=== PATIENT | female | born 1980 | race Caucasian/White ===

== ENCOUNTER → 2024-05-25 10:24 | Outpatient (BNVA) | payer OTHER, SELFPAY | PROVIDERS: Visit Provider Student in an Organized Health Care Education/Training Program | DX: S92.30 Fracture of unspecified metatarsal bone(s); X58.XXXD Exposure to other specified factors, subsequent encounter; M25.371 Other instability, right ankle | CPT/HCPCS: 73630 ==

== ENCOUNTER 2024-05-26 09:51 | Outpatient (CLI) | payer OTHER, SELFPAY ==
--- NOTE | 2024-05-26 10:15 | MRR_ITS ---
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 Exam focused on the ankle. COMPARISON: CR XR foot RT min 3V* [id number] 05/25/2024 10:45 AM FINDINGS: Bones/joints: A transversely oriented minimally displaced fracture of the proximal shaft of the 5th metatarsal is similar. Adjacent moderate patchy bone marrow edema throughout the 5th metatarsal shaft is identified. Small osteophytes are identified at the midfoot and 2nd tarsometatarsal articulation. Mild degenerative subcortical cystic changes in the base of the 2nd metatarsal and the distal aspect of the medial cuneiform are noted. A small to moderate os trigonum is noted. Moderate plantar calcaneal enthesophyte formation is identified. LIGAMENTS: Distal tibiofibular syndesmosis: Unremarkable. No tear. Anterior talofibular ligament: Unremarkable. No tear. Posterior talofibular ligament: Unremarkable. No tear. Calcaneofibular ligament: Unremarkable. No tear. Deltoid ligament complex: Unremarkable. No tear. TENDONS: Flexor tendons of foot: Unremarkable as visualized. Tibialis posterior tendon: Unremarkable as visualized. Peroneal tendons: Mild abnormal fluid in the peroneus longus and brevis tendon sheaths is noted. Extensor tendons of foot: Unremarkable as visualized. Tibialis anterior tendon: Unremarkable as visualized. Achilles tendon: Unremarkable as visualized. Tarsal canal (Sinus tarsi): Unremarkable. Normal signal of the fat. Tarsal tunnel: Unremarkable. Soft tissues: Mild medial and lateral subcutaneous edema is noted. No discrete soft tissue fluid collection. Mild interosseous muscle edema is noted surrounding the 5th metatarsal shaft. Plantar fascia: Plantar fascia is unremarkable. MR/MR ankle RT wo con* [id number] IMPRESSION: 1. Similar minimally displaced fracture of the proximal shaft of the 5th metatarsal with adjacent bone marrow edema suggestive of contusion. No significant healing at the fracture site is identified. 2. Interosseous muscle edema surrounds the 5th metatarsal shaft, likely reactive. 3. Mild midfoot and 2nd tarsometatarsal joint primary osteoarthritic changes. 4. Mild peroneus longus and brevis tenosynovitis.
== END 2024-05-26 09:52 | disposition home or self-care (01) ==
LOC: RAD 09:52
PROVIDERS: Visit Provider Student in an Organized Health Care Education/Training Program
DX: S92.351A Displaced fracture of fifth metatarsal bone, right foot, initial encounter for closed fracture (principal); M25.371 Other instability, right ankle; X58.XXXA Exposure to other specified factors, initial encounter
CPT/HCPCS: 73721

== ENCOUNTER → 2024-07-05 13:29 | Outpatient (BNVA) | payer OTHER, SELFPAY | PROVIDERS: Visit Provider Nurse Practitioner Family | DX: S89.82XA Other specified injuries of left lower leg, initial encounter (principal); M25.762 Osteophyte, left knee; X58.XXXA Exposure to other specified factors, initial encounter; Y99.0 Civilian activity done for income or pay; M17.12 Unilateral primary osteoarthritis, left knee | CPT/HCPCS: 73562 ==

== ENCOUNTER 2024-07-08 11:45 | Outpatient (CLI) | payer OTHER, SELFPAY ==
--- NOTE | 2024-07-08 11:45 | MR_ITS ---
WS: [id number] MRI LEFT KNEE NONCONTRAST TECHNIQUE: Axial PD, coronal PD fat sat, coronal PD, sagittal PD, and sagittal PD fat-sat images obta ined. CLINICAL INFORMATION: Left knee pain and instability COMPARISON: None. FINDINGS: Moderate tricompartment arthritis advanced for patient this age. Mild hypertrophic changes along the joint line. Grade IV chondromalacia patella with a small amount of subchondral edema and full-thickne ss cartilage defects also advanced for patient this age. Small suprapatellar effusion. Mild mucoid de generation of the ACL. ACL and PCL appear intact. Chronic thinning of the medial and lateral meniscus which appear intact. Prepatellar and infrapatellar soft tissue edema. Medial and lateral collateral ligaments appear intact. Popliteus appears intact. Normal fibular head. Trace popliteal fluid/cyst. MR/MR knee LT wo con* [id number] IMPRESSION: 1. Normal ACL and PCL. 2. Moderate tricompartmental arthritis most advanced for patient this age with slight hypertrophic changes along the joint line. 3. Medial and lateral collateral ligaments appear intact. 4. Chronic thinning of the medial and lateral meniscus with mild peripheral ex trusion of the medial meniscus. No acute appearing meniscal tears. 5. Grade IV chondromalacia patella with full-thickness cartilage defects and a small amount of subchondral edema. This is advanced for patient this age. 6. Small suprapatellar effusion. Outbridge grading: grade IV: full-thickness cartilage loss with underlying bone reactive changes
== END 2024-07-08 11:46 | disposition home or self-care (01) ==
PROVIDERS: Visit Provider Nurse Practitioner Family
DX: M17.12 Unilateral primary osteoarthritis, left knee (principal); M22.42 Chondromalacia patellae, left knee; M25.462 Effusion, left knee; S89.92XA Unspecified injury of left lower leg, initial encounter; X58.XXXA Exposure to other specified factors, initial encounter
CPT/HCPCS: 73721

== ENCOUNTER 2025-01-04 19:34 | Emergency (ER) | payer OTHER, SELFPAY ==
--- OUTSIDE RECORDS SUMMARY | 2025-01-04 19:38 | XMS_ITS | Patient Health Record ---
Author Organization [facility] Address [address] [facility] [address] [place] [address] Care Team Providers Care Continuous Improvement Engineer Name Role Phone Jenny Mcclellan Primary Care Provider Annalisaa Lucero Dempsey Unavailable [phone] Reason For Referral No Information Problems Problem Type SNOMED Code ICD Code Onset Dates Problem Status W/U Status Risk Notes Problem Inflamed seborrheic keratosis (421599061) Inflamed seborrheic keratosis (L82.0) Active confirmed Problem Disorder of skin AND/OR subcutaneous tissue (19348731) Disorder of the skin and subcutaneous tissue, unspecified (L98.9) Active confirmed Problem History of malignant neoplasm of skin (situation) (136593583) Personal history of other malignant neoplasm of skin (Z85.828) Active confirmed Plan Of Treatment No Information Insurance Providers Payer Name Payer Address Payer Phone Subscriber Number Group Number Insured Name Patient Relationship to Insured Coverage Start Date Coverage End Date [employer] [address] [place] [id number] [id number] Juan Magaly Self - patient is the insured
--- OUTSIDE RECORDS SUMMARY | 2025-01-04 19:39 | XMS_ITS | Data Portability ---
Author Organization [facility], [employer] [facility] Address [address] [place] [address] Assessment Encounter Date Assessment Date Assessment LastModified by Organization Details LastModified Time 12/13/2022 12/13/2022 Patient presented for medication refill. Patient tolerating medication well at current dose without adverse effects. Refilled as below. Discussed plan with patient, who expressed understanding . Follow up as noted below. Not available 12/13/2022 09:25:13 04/07/2023 04/07/2023 Patient presented for medication refill. Patient tolerating medication well at current dose without adverse effects. Refilled as below. Discussed plan with , who expressed understanding . Follow up as noted below. Not available 04/08/2023 17:24:38 01/20/2024 01/20/2024 Patient presented for medication refill. Patient tolerating medication well at current dose without adverse effects. Refilled as below. Discussed plan with patient, who expressed understanding . Follow up as noted below. [email or web address] Not available 01/20/2024 10:02:12 Plan of Treatment Reminders Order Date Submit Date Provider Last Modified By Organization Details Last Modified Time Details Appointments None recorded. Lab vitamin D, 25-hydroxy, total, serum 2023 TAMMIE Not available 15:14:07 CBC w/ auto diff 2023 TAMMIE Not available 15:24:43 CMP, serum or plasma 2023 TAMMIE Not available 15:17:42 lipid panel, serum 2023 024 TAMMIE Not available 4 15:17:05 vitamin B12 + folate, serum or blood 2023 024 TAMMIE Not available 4 15:16:[address] referral 2022 023 Sergio Sanchez MD, [address] [facility], [address], [place], [address], 3 11:08:08 Procedures None recorded. Surgeries None recorded. Imaging None recorded. Medication Orders metoprolol tartrate 50 mg tablet 2023 024 [facility], [address] [facility], [address], [place], [address], 4 15:43:13 prednisone 10 mg tablet 2023 024 [facility], [address] [place] [address] [place], [id number], 4 10:46:22 atorvastati n 20 mg tablet 2023 024 TAMMIE Not available 4 10:18:45 hydroxyzine HCl 25 mg tablet 2023 024 [facility], [address] [facility], [address], [place], [address], 4 11:39:45 Wellbutrin XL 150 mg 24 hr tablet, extended release 2023 024 [facility], [address] [facility] [address], [address], [place], [address], 4 11:39:48 Zanaflex 4 mg tablet 2023 024 [facility], [address] [facility] [address], [address], [place], [address], 4 16:16:06 spironolact one 25 mg tablet 2023 024 [facility] [place], [address] [place] [address], [address], [place], [address], 4 15:43:14 metoprolol tartrate 50 mg tablet 2022 023 TAMMIE Not available 3 16:31:15 tizanidine 4 mg tablet 2022 023 Not available 4 09:59:59 hydroxyzine HCl 25 mg tablet 2022 023 [email or web address] Not available 4 10:01:09 atorvastati n 20 mg tablet 2022 023 TAMMIE Not available 4 14:54:54 Wellbutrin XL 150 mg 24 hr tablet, extended release 2022 023 [email or web address] Not available 4 10:00:09 alprazolam 0.5 mg tablet 2022 023 [email or web address] Not available 4 09:59:12 cyanocobala min (vit B-12) 1,000 mcg/mL injection solution 2022 023 TAMMIE Not available 3 17:12:49 ergocalcife rol (vitamin D2) 1,250 mcg (50,000 unit) capsule 2022 023 TAMMIE Not available 4 14:54:53 spironolact one 25 mg tablet 2022 023 TAMMIE Not available 4 14:54:56 clonidine HCl 0.1 mg tablet 2022 023 [email or web address] Not available 4 10:09:15 losartan 50 mg-hydrochl orothiazide 12.5 mg tablet 2022 023 [email or web address] Not available 4 10:09:31 spironolact one 25 mg tablet 2022 023 TAMMIE Not available 3 11:39:39 clonidine HCl 0.1 mg tablet 2022 023 [email or web address] Not available 4 10:09:15 phentermine 37.5 mg tablet 2022 023 [email or web address] Not available 4 10:09:35 tranexamic acid 650 mg tablet 2022 023 TAMMIE Not available 3 17:12:39 phentermine 37.5 mg tablet 2022 023 [email or web address] Not available 4 10:09:35 metoprolol tartrate 50 mg tablet 2022 023 TAMMIE Not available 3 15:44:31 Patient Targets Encounter Date Encounter Id Patient Goals Patient Target Last Modified By Organization Details Last Modified Time 11/15/2022 [id number] maintain healthy dietmaintain healthy weightmaintain blood pressure less than or equal to 150/90 [email or web address] Not available 11/15/2022 10:01:03 12/13/2022 [id number] decrease body weight 1-3 pounds per month Not available 12/13/2022 10:05:54 04/07/2023 [id number] blood pressure 120/80mmHgget spots on her face removed Not available 04/08/2023 17:29:26 Patient Instructions Encounter Date Encounter Id Patient Instructions Last Modified By Organization Details Last Modified Time 12/13/2022 [id number] take medication as prescribed increase fluids encourage diet and exercise keep appointment with Gynecology Not available 12/13/2022 10:08:57 04/07/2023 [id number] learning about relief for back pain Not available 04/07/2023 17:11:47 take medication as prescribed increase fluids will refer to dermatology Not available 04/08/2023 17:29:50 01/20/2024 [id number] labs pending Discussed keeping daily blood pressure log Increase water intake Watch sodium and caffeine intake Use heat and cold therapy for 15 minutes at a time Rest affected area as much as possible Alternate tylenol and ibuprofen q4h PRN for pain as appropriate Educated on gentle stretching [email or web address] Not available 01/20/2024 10:19:07 Reason for Referral [place] Referral for M elanocytic nevus of skin Referring Physician: Jenny Mcclellan, Family Medicine, Encounter Date: 04/07/2023 Results Created Date Observation Date Name Description Value Unit Range Abnormal Flag Note LastModifiedBy Organization Detail LastModifiedTime Result Notes None recorded. Problems Name Problem SNOMED Code Status Onset Date Resolution Date Notes Provider Name and Address Organization Details Recorded Time Obesity 877056962 Active 2022 Not Available [facility] 3 11:28:46 Essential hypertensi on 31422781 Active 2022 Not Available [facility] 3 11:28:46 Disorder of menstruati on 004040574 Active 2022 Not Available [facility] 3 11:28:46 Menorrhagi a 859916560 Active 2022 Not Available [facility] 3 11:28:46 Anxiety 32764249 Active 2023 Alanna Angelo, DIM[place] [address] [place], [address] , [facility] 4 10:10:04 Disorder of vitamin B12 528551498 Active 2023 Alanna Angelo APRN [address] [place], [address] , [facility] 4 10:12:10 Pain of right hip joint 9079124597159 02 Active 2023 Alanna Angelo APRN [address] [place], [address] , [facility] 4 10:14:20 Vitamin D deficiency 37158644 Active 2023 Alanna Angelo APRN [address] [place], [address] , [facility] 4 10:15:01 Hypertensi ve disorder 29312850 Active 2019 Not Available [facility] 3 11:28:46 Depressive disorder 30363977 Active 2019 Not Available [facility] 3 11:28:46 Hyperlipid emia 78178274 Active 2019 Not Available [facility] 3 11:28:46 Problem Notes None recorded. Procedures Surgical History Date Name Laterality Status Provider Name and Address Organization Details Recorded Time 2 delivery completed Pari Rodriguez [facility] 06/26/2021 14:52:58 repair of tendon completed Ana Rivas [facility] 08/11/2019 16:38:29 Imaging Results None recorded. Procedure Notes None recorded. Medical Equipment None Reported. Allergies Allergen ID Allergen Name Allergen Category Reaction Reaction Severity Criticality Documentation Date Start Date Code Code System Note Provider Name and Address Organization Details Recorded Time 3174 lisinopri l medicatio n Not available Not available Not available 08/11/2019 77005 RxNorm Ana Rivas [facility] 0 16:32:00 3175 doxycycli ne Not available Not available Not available Not available 08/11/2019 3640 RxNorm Ana Rivas [facility] 0 16:32:09 3176 Imitrex medicatio n Not available Not available Not available 08/11/2019 69710 3 RxNorm Ana Rivas [facility] 0 16:32:15 Medications Name Sig Start Date Stop Date Status Note LastModified by Organization Details LastModified Time semaglutide 1mg/ml injection milliliters INJECT 0.5ML (50 SYRINGE UNITS) UNDER THE SKIN ONCE WEEKLY 01/19 completed Not Available Not Available Not Available losartan 50 mg tablet TAKE 1 TABLET BY MOUTH TWICE DAILY 07/20 completed Not Available Not Available Not Available cyclobenzap rine 10 mg tablet 1 tab PO daily as needed 06/29 completed Not Available Not Available Not Available clonidine HCl 0.1 mg tablet Take 1 tablet every day by oral route as needed for 30 days. 01/19 completed Not Available Not Available Not Available prednisone 10 mg tablet TAKE ONE TABLET BY MOUTH EVERY DAY FOR 10 DAYS active Not Available Not Available No t Available atorvastati n 20 mg tablet TAKE 1 TABLET EVERY DAY BY ORAL ROUTE FOR 30 DAYS. active Not Available Not Available No t Available azithromyci n 250 mg tablet TAKE 2 TABLETS BY MOUTH ON DAY 1, THEN TAKE 1 TABLET DAILY ON DAYS 2-5 01/19 completed Not Available Not Available Not Available benzonatate 200 mg capsule Take 1 capsule 3 times a day by oral route. 06/29 completed Not Available Not Available Not Available valacyclovi r 1 gram tablet Take 2 tablets every 12 hours by oral route for 1 day. 06/29 completed Not Available Not Available Not Available prednisone 20 mg tablet Take 2 tablets every day by oral route. 06/29 completed Not Available Not Available Not Available promethazin e 6.25 mg-codeine 10 mg/5 mL syrup Take 5 mL every 6 hours by oral route. 06/29 completed Not Available Not Available Not Available phentermine 37.5 mg tablet Take 1 tablet every day by oral route for 30 days. 01/19 completed Not Available Not Available Not Available fluocinonid e 0.05 % topical ointment APPLY TO THE AFFECTED AREA(S) BY TOPICAL ROUTE 2 TIMES PER DAY 04/07 completed Not Available Not Available Not Available acetaminoph en 300 mg-codeine 30 mg tablet Take 1 tablet every 6 hours by oral route for 7 days. 06/29 completed Not Available Not Available Not Available triamterene 37.5 mg-hydrochl orothiazide 25 mg capsule 06/29 completed Not Available Not Available Not Available spironolact one 25 mg tablet 1-2 tablets daily 2023 active Not Available Not Available Not Avai lable acyclovir 800 mg tablet Take 1 tablet 3 times a day by oral route as needed for 10 days. 03/01 completed Not Available Not Available Not Available carvedilol 3.125 mg tablet TAKE 1 TABLET BY MOUTH TWICE DAILY 06/29 completed Not Available Not Available Not Available Celebrex 200 mg capsule Take 1 capsule every day by oral route. 09/06 completed Not Available Not Available Not Available losartan 100 mg-hydrochl orothiazide 25 mg tablet 04/07 completed Not Available Not Available Not Available alprazolam 0.5 mg tablet 1 tab PO bid 01/19 completed Not Available Not Available Not Available Zanaflex 4 mg tablet Take 1 tablet 3 times a day by oral route as needed for 30 days. 2023 active Not Available Not Available Not Avai lable potassium 99 mg tablet Take by oral route. 06/29 completed Not Available Not Available Not Available amoxicillin 875 mg tablet TAKE ONE TABLET BY MOUTH TWICE DAILY 01/19 completed Not Available Not Available Not Available cephalexin 500 mg capsule TAKE 2 CAPSULES BY MOUTH TWICE DAILY 01/19 completed Not Available Not Available Not Available cyanocobala min (vit B-12) 1,000 mcg/mL injection solution Inject 1 mL every month by subcutane ous route. 2023 active Not Available Not Available Not Avai lable Norvasc 5 mg tablet Take 1 tablet every day by oral route. 08/26 completed Not Available Not Available Not Available triamcinolo ne acetonide 0.1 % topical ointment APPLY OINTMENT TOPICALLY TO AFFECTED AREA THREE TIMES DAILY 03/01 completed Not Available Not Available Not Available metoprolol tartrate 50 mg tablet TAKE ONE TABLET BY MOUTH TWICE DAILY active Not Available Not Available No t Available hydrochloro thiazide 12.5 mg capsule TAKE 1 CAPSULE (12.5 MG TOTAL) BY MOUTH DAILY. 06/29 completed Not Available Not Available Not Available hydroxyzine HCl 25 mg tablet Take 1 tablet 3 times a day by oral route for 30 days. 2023 active Not Available Not Available Not Avai lable mupirocin 2 % topical ointment APPLY OINTMENT EXTERNALL Y TO AFFECTED AREA THREE TIMES DAILY 03/01 completed Not Available Not Available Not Available ergocalcife rol (vitamin D2) 1,250 mcg (50,000 unit) capsule TAKE 1 CAPSULE (50,000 UNITS TOTAL) BY MOUTH ONCE A WEEK. 2022 active Not Available Not Available Not Avai lable dexamethaso ne sodium phosphate 4 mg/mL injection solution Inject 2 mL twice a day by intramusc ular route. 06/29 completed Not Available Not Available Not Available Transderm-S copra sampler 1 mg over 3 days transdermal patch 06/29 completed Not Available Not Available Not Available methylpredn isolone 4 mg tablets in a dose pack follow attached instructi ons 01/19 completed Not Available Not Available Not Available albuterol sulfate HFA 90 mcg/actuati on aerosol inhaler INHALE 1 PUFF EVERY 4 HOURS NEEDED 01/19 completed Not Available Not Available Not Available losartan 50 mg-hydrochl orothiazide 12.5 mg tablet Take 1 tablet every day by oral route. 01/19 completed Not Available Not Available Not Available amoxicillin 875 mg-baldev m clavulanate 125 mg tablet 08/11 completed Not Available Not Available Not Available Mucinex 600 mg tablet, extended release Take 1 tablet every 12 hours by oral route. 06/29 completed Not Available Not Available Not Available bupropion HCl XL 300 mg 24 hr tablet, extended release TAKE 1 TABLET (300 MG TOTAL) BY MOUTH EVERY MORNING. 03/01 completed Not Available Not Available Not Available Wellbutrin XL 150 mg 24 hr tablet, extended release Take 1 tablet every day by oral route for 30 days. 2023 active Not Available Not Available Not Avai lable metoprolol tartrate 25 mg tablet Take 1 tablet twice a day by oral route for 30 days. 04/07 completed Not Available Not Available Not Available duloxetine 20 mg capsule,del ayed release Take 1 capsule twice a day by oral route. 08/26 completed Not Available Not Available Not Available Zanaflex 4 mg PRN 03/01 completed Not Available Not Available Not Available alendronate -vitamin D3 1 tab PO 06/29 completed Not Available Not Available Not Available Symbicort 160 mcg-4.5 mcg/actuati on HFA aerosol inhaler Inhale 2 puffs twice a day by inhalatio n route. 07/20 completed Not Available Not Available Not Available azelastine 205.5 mcg (0.15 %) nasal spray [place] 1 spray twice a day by intranasa l route. 06/29 completed Not Available Not Available Not Available tranexamic acid 650 mg tablet Take 2 tablets 3 times a day by oral route for 4 days. 04/07 completed Not Available Not Available Not Available Vitals Date Recorded Body height Heart rate Body mass index (BMI) Body weight Oxygen saturation Oxygen saturation in Arterial blood by Pulse oximetry Systolic blood pressure Diastolic blood pressure Provider Name and Address Organization Details Last Updated DateTime 3 157.48 cm 76 /min 44.6 kg/m2 825787. 46 g 99 % 99 % 169 mm[Hg] 81 mm[Hg] [facility] 3 09:14:35 Date Recorded Body height Body mass index (BMI) Body weight Heart rate Body temperature Respiratory rate Oxygen saturation Oxygen saturation in Arterial blood by Pulse oximetry Systolic blood pressure Diastolic blood pressure Provider Name and Address Organization Details Last Updated DateTime 3 157.48 cm 43.7 kg/m2 037604. 29 g 67 /min 97.9 [degF] 16 /min 98 % 98 % 152 mm[Hg] 95 mm[Hg] Madhuri Tamez [facility] 3 09:08:19 Date Recorded Body height Heart rate Respiratory rate Body temperature Body mass index (BMI) Body weight Oxygen saturation Oxygen saturation in Arterial blood by Pulse oximetry Systolic blood pressure Diastolic blood pressure Provider Name and Address Organization Details Last Updated DateTime 4 157.48 cm 61 /min 18 /min 98.3 [degF] 43.4 kg/m2 019045. 11 g 99 % 99 % 139 mm[Hg] 82 mm[Hg] Cherelle Castro [facility] 4 09:41:48 Date Recorded Body height Heart rate Respiratory rate Body temperature Body mass index (BMI) Body weight Systolic blood pressure Diastolic blood pressure Provider Name and Address Organization Details Last Updated DateTime 3 157.48 cm 63 /min 18 /min 98.4 [degF] 43.8 kg/m2 619609. 37 g 175 mm[Hg] 102 mm[Hg] [facility] 3 09:10:34 Date Recorded Body height Body mass index (BMI) Body weight Heart rate Oxygen saturation Oxygen saturation in Arterial blood by Pulse oximetry Systolic blood pressure Diastolic blood pressure Provider Name and Address Organization Details Last Updated DateTime 3 157.48 cm 44.6 kg/m2 151381. 9 g 66 /min 99 % 99 % 161 mm[Hg] 89 mm[Hg] Christelle Yeh [facility] 3 17:00:40 Social History Question Answer Notes LastModified by [employer] Details LastModified Time Tobacco Smoking Status [facility] 16:37:38 What Is Your Relationship Status? [email or web address] Information not available 06/26/2021 Sex: Unknown Functional Status Question Answer Note LastModified by [employer] Details LastModified Time Do you or have you ever used any other forms of tobacco or nicotine? No [email or web address] Information not available 06/26/2021 What is your level of alcohol consumption? None [email or web address] Information not available 06/26/2021 Do you or have you ever used smokeless tobacco? Never used smokeless tobacco [email or web address] Information not available 08/11/2019 Do you or have you ever used e-cigarettes or vape? Never used electronic cigarettes [email or web address] Information not available 08/11/2019 Mental Status None recorded. Family History Nothing Reported. Medical History No medical history recorded. Gynecological History Statement/Question Response Date of LMP 05/30/2021 28 Obstetrics History GPAL:G 1 P 1 0 0 1 Type Value Full Term 1 Living 1 Total 1 Past Encounters Encounter ID Performer Location Encounter Start Date Encounter Closed Date Diagnosis/Indication Diagnosis SNOMED-CT Code Diagnosis ICD10 Code Diagnosis Note [id number] Jenny Mcclellan NP [facility] [address] [place] [id number] 08/11/2019 16:25:02 08/11/2019 17:24:07 Pain of right hip joint 1976121397 65559 M25.551 [id number] Merrill Fernandez DO [facility] [address] [place] [address] 09/03/2019 09:07:10 09/14/2019 16:27:20 Upper respiratory infection 47890834 J06.9 [id number] Jenny Mcclellan NP [facility] [address] [place] [id number] 09/13/2019 09:29:32 09/15/2019 09:29:03 Acute sinusitis 80870265 J01.90 Acute bronchitis 4566710 2 J20.9 [id number] Bryant Ahn NP [facility] [address] [place] [address] 01/28/2020 14:36:55 01/28/2020 15:18:12 Acute sinusitis 34185009 J01.90 Pruritic rash 00094294 L 28.2 [id number] Jenny Mcclellan NP [facility] [address] [id number] 07/27/2020 10:16:11 07/27/2020 11:41:41 Pain in right foot 5040602280 40880 M79.671 wear walking boot [id number] Jenny Mcclellan NP [facility] [address] [place] [id number] 06/06/2021 09:27:27 06/06/2021 14:48:54 Acute bronchitis 45244173 J20.9 [id number] Merrillfabrice Fernandez [facility] [address] [place] [id number] 06/29/2021 09:25:09 07/19/2021 09:38:37 Obesity 159003940 E66.9 will start phentermin e, follow up in a week or so to check progress and blood pressure [id number] Jenny Mcclellan NP [facility] [address] [place] [address] 07/04/2021 09:04:02 07/23/2021 17:16:17 [id number] Merrill Jim [facility] [address] [place] [address] 07/20/2021 08:47:46 08/12/2021 17:51:48 Anxiety 03101527 F41.9 Essential hypertension 60741718 I10 change losartan to losartan / HCT Obesity 858975769 E66.9 [id number] Merrill Fernandez [facility] [address] [place] [id number] 08/31/2021 11:10:55 09/20/2021 09:24:05 Herpes simplex 17068589 B00.9 Contact dermatitis 00033 004 L25.9 Vitamin D deficiency 347 08332 E55.9 Obesity 556853413 E66.9 Depressive disorder 3548 9007 F32.A [id number] [facility] [address] [place] [id number] 10/12/2021 16:09:42 10/16/2021 15:00:40 Obesity 596987866 E66.9 [id number] Jenny Bonillaid [facility] [address] [place] [id number] 11/09/2021 16:25:16 12/20/2021 12:38:08 Essential hypertension 80991412 I10 change losartan to losartan / HCT and higher dose Obesity 539029402 E66.9 Vitamin B1 2 deficiency (non anemic) 57331797 E53.8 Hypertensive disorder 38 690397 I10 [id number] Merrill [facility] [address] [place] [id number] 12/07/2021 10:26:50 12/11/2021 11:31:37 Obesity 518485948 E66.9 [id number] Merrill [facility] [address] [place] [id number] 03/01/2022 09:51:25 03/05/2022 17:20:31 Anxiety 35565588 F41.9 Hypertensive disorder 38 644607 I10 [id number] CARL BERG [facility] [address] [place] [place] [id number] 08/26/2022 09:00:02 10/17/2022 17:36:01 Hypertensive disorder 81631684 I10 Anxiety 78792647 F41.9 Hyperlipidemia 21729047 E78.5 [id number] CARL BERG [facility] [address] [place] [place] [id number] 09/11/2022 09:03:43 10/17/2022 18:26:04 Essential hypertension 04588824 I10 Disorder o f menstruation 504843971 N92.6 [id number] CARL BERGalessandra [facility] [address] [place] [address] 10/29/2022 14:14:23 11/06/2022 13:53:36 Menorrhagia 610983780 N92.0 Hypertensive disorder 38 219052 I10 [id number] CARL BERGalessandra [facility] [address] [place] [address] 11/15/2022 09:01:32 11/15/2022 10:17:02 Hypertensive disorder 22751745 I10 Obesity 642203252 E66.9 [id number] Jenny Mcclellan NP [facility] [address] [place] [address] 12/13/2022 09:02:15 12/13/2022 10:10:02 Renewal of prescription 802614462 Z76.0 Menorrhagia 246143525 N9 2.0 Obesity 614477484 E66.9 [id number] CARL BERGalessandra [facility] [address] [place] [address] 02/18/2023 09:05:36 03/24/2023 17:04:53 Essential hypertension 84339148 I10 [id number] LORENA CHRISTINE DO [facility] [address] [place] [address] 04/07/2023 16:52:54 04/09/2023 09:22:02 Essential hypertension 63752312 I10 Hypertensive disorder 38 098676 I10 Vitamin B1 2 deficiency (non anemic) 58765624 E53.8 Hyperlipidemia 69937597 E78.5 Vitamin D deficiency 347 57371 E55.9 Anxiety 71111212 F41.9 Low back pain 306228329 M54.50 Melanocyti c nevus of skin 207508287 D22.9 Renewal of prescription 656048693 Z76.0 [id number] Alanna Angelo APRN [facility] [address] [place] [address] 01/20/2024 09:34:31 01/20/2024 14:57:49 Essential hypertension 66028170 I10 Hyperlipidemia 05861248 E78.5 Hypertensive disorder 38 222784 I10 Anxiety 92657273 F41.9 Adult heal th examination 456252312 Z00.00 Disorder o f vitamin B12 418287238 E53.8 Renewal of prescription 760550645 Z76.0 Pain of ri ght hip joint 3830717752 93841 M25.551 Vitamin D deficiency 347 87754 E55.9 Health Concerns Section Related Observation LastModified by Organization Detai ls LastModified Time None Recorded Concern Status LastModified by Organization Details LastModified Time None Recorded Advance Directives Directive None Recorded Payers Insurance Date Sequence Insurance Name Policy Number Policy Morrow Covered Member ID Morrow Member ID Guarantor Name 01/28/2020 1 [facility]-[employer] - [employer] - [employer] (PPO) [id number] Kevon Martinez [id number] Magaly Martinez 07/27/2020 1 [employer] - 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) Magaly Martinez [id number] Magaly Martinez 01/20/2024 1 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) [id number] Magaly Martinez [id number] Magaly Martinez 02/29/2020 2 [employer] (PPO) Magaly Martinez [id number] Magaly Martinez 07/27/2020 1 [facility]-[employer] - [employer] - [employer] (PPO) [id number] Magaly Martinez [id number] Magaly Martinez Notes Date Note Type Note Provider Name and Address Organization Details Recorded Time 11/15/2022 text/html Hypertension IM/FMReported bypatient.Onset/Ti saumya:better Self Care:non-smoker; on special diet; limiting alcohol intake; exercises regularly;under emotional stress Associated Symptoms:no shortness of breath; no fatigue; no palpitations; no decline in exercise capacity; exertional dyspnea; no snoring; no sleep apnea; no muscle weakness; no numbness; no tingling; no tachycardia; no excessive sweating; no thinning skin; no flank pain; no headaches; no loss of vision; no chest pain alessandra DUNAWAY [address], [place], [phone], [facility] 11/15/2022 10:01:48 12/13/2022 text/html 41 year old suzanna e female presents to the clinic today for medication refills. She states that she has been doing really well on the current medication, route and dose. She denies any other needs at this time. She states that she is also wanting a refill on the TXA because she has one more scheduled menstrual cycle before her surgery and she would like to be prepared for a horrible, heavy cycle since that seems to be the trend. She denies any other needs at this time. Jenny Mcclellan NP [address], [place], [phone], [facility] 12/13/2022 10:09:20 02/18/2023 text/html Hypertension IM/FMReported bypatient.Onset/Ti saumya:better Self Care:non-smoker; on special diet; limiting alcohol intake; exercises regularly;under emotional stress Associated Symptoms:no shortness of breath; no decline in exercise capacity; exertional dyspnea; no snoring; no sleep apnea; no muscle weakness; no numbness; no tingling; no excessive sweating; no thinning skin; no flank pain; no headaches; no loss of vision; no chest pain;fatigue;palpi tations alessandra DUNAWAY [address], [place], [phone], [facility] 03/24/2023 16:17:09 04/07/2023 text/html 42 year old suzanna vergara female presents to the clinic today for medication refills. She states she has been doing well with the current medication. She states that she is changing insurance and is wanting to get her medications before it changes. She also has to areas on the right side of her face that have changed and is scaly. She states that she has had precancer areas removed before and is concerned that these area may be cancerous. She denies any toher needs at this time. Jenny Mcclellan NP [address] [place], [phone], [facility] 04/08/2023 17:30:00 01/20/2024 text/html 43 year old adriana guerrier presents today for wellness. Needs medications refilled. Has been having right hip pain. 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 lAanna Angelo, C SOFTWARE ENGINEER [address], [place], [phone], [facility] 01/20/2024 10:29:45 OBGyn Episode No OBEpisode recorded.
--- OUTSIDE RECORDS SUMMARY | 2025-01-04 19:39 | XMS_ITS ---
Author Organization Unknown Address [address] [place] [id number] Phone Care Team Providers Care Clinical Engineering Director Name Role Phone CIELO STONE Registered Nurse Unavailable MIKEY Thao Attending Unavailable VISHAL STERN ER Unavailab le Results FOOT RT 3+ VIEWS - Completed : 05/15/2024 13:04 LOINC: Social History Type Status Start Date End Date Code Code Syst em Smoking History Never smoker (Never Smoked) 806037899 SNOMED CT Sex Female Vital Signs Vital Sign Value Unit Howe Value Howe Unit Date/Time Recent/Initial? Code Code System Body Mass Index 44.81 kg/m2 05/15/2024 12:28 Initial 30885 -5 [facility] Systolic Blood Pressure 179 mm[Hg] 05/15/2024 12:28 Initial 8480- 6 LOINC Diastolic Blood Pressure 105 mm[Hg] 05/15/2024 12:28 Initial 8462- 4 LOINC Body Surface Area 2.20 m2 05/15/2024 12:28 Initial 3140- 1 LOINC Height 157.480 0 cm 62.00 in 05/15/2024 12:28 Initial 8302- 2 LOINC O2 Saturation 98 % 2023 12:28 Initial 98651 -5 LOINC Pulse 58.0 /min 05/15/2024 12:28 Initial 8867- 4 LOINC Respiration 18 /min 05/15/20 12:28 Initial 9279- 1 LOINC Temperature 37.1 Jacqueline 98.7 F 05/15/20 12:28 Initial 8310- 5 LOINC Weight 111.13 kg 245.00 lbs 05/15/2024 12:28 Initial 81915 -7 LOINC Medications Medication Start Date End Date Route Frequency Dose Code Code System Medication Instructions Home Meds ALPRAZolam 0.5MG Oral Tablet 06/15/2018 Unknown By mouth As needed 1 TABLET 645119 RxNorm 1 TABLET By mouth As needed CeleBREX 200MG Oral Capsule 06/15/2018 Unknown By mouth As needed 1 TABLET 807284 RxNorm 1 TABLET By mouth As needed Cyanocobalamin 1000MCG/1ML Injection Solution 06/15/2018 Unknown Intramuscu lar Two times a month 1 MILLILITER 140677 RxNorm 1 MILLILITER Intramuscu lar Two times a month Lipitor 20MG Oral Tablet 06/15/2018 Unknown By mouth Once a day 1 TABLET 269123 RxNorm 1 TABLET By mouth Once a day Wellbutrin SR 150MG Oral Tablet, Extended Release, 12 HR 06/15/2018 Unknown By mouth Once a day 1 TABLET 369116 RxNorm 1 TABLET By mouth Once a day Zanaflex 4MG Oral Tablet 06/15/2018 Unknown By mouth As needed 1 TABLET 886759 RxNorm 1 TABLET By mouth As needed Azithromycin 250MG Oral Tablet 05/08/2024 Unknown By mouth Once a day 1 TABLET 750294 RxNorm take 2 tablets today and one for the next four days Ventolin HFA 0.09MG/1Actuati on Inhalation Suspension 05/08/2024 Unknown By mouth Every 4-6 hours 530531 RxNorm 1-2 PUFF By mouth Every 4-6 hours as needed for SoB Assessment You had the following problems:ANXIETYHTNHYPERLIPIDEMIACHRONIC LOW BACK PAINSIASTHMABRONCHITISCLOSED FRACTURE OF METATARSAL BONE OF RIGHT FOOT Assessment Impression metatarsal fracture of right foot Hospital Discharge Instructions Should you have any questions prior to discharge, please contact a member of your healthcare team. If you have left the hospital and have any questions, please contact your primary care physician. Reason For Referral No Data Found Problems Problem Start Date Resolved Date Status Code Code System ANXIETY active 71718812 SNOMED-CT HTN active 47816792 SNOMED-CT HYPERLIPIDEMIA active 59300323 SNOME D-CT CHRONIC LOW BACK PAIN active 40813658 9 SNOMED-CT SI active SNOMED-CT ASTHMA active 631832077 SNOMED-CT BRONCHITIS active 35189633 SNOMED-CT CLOSED FRACTURE OF METATARSAL BONE OF RIGHT FOOT 05/15/2024 active 59241286546000584 SNOMED-CT Allergies and Adverse Reactions Allergy Substance Reaction Severity Start Date Concern Status Code Code System DOXYCYCLINE Active 3640 RxNorm LISINOPRIL Active 87710 RxNorm FLU VACCINE HIVES,RASH, ELEVATED HEART RATE (SNOMED-CT: null) Active 527785363 SNOMED-CT IMITREX Active 608621 RxNorm Plan of Treatment Plan Is This a Cardiac or Chest Pain Patient?: No Disposition: Discharged Evaluation Notes The patient is discharged home with a disc containing her radiology films and instructed to follow up with her orthopedic surgeon within 2 - 5 days. The patient has an orthopedic walking boot for her right foot that she plans of wearing until her appointment. Encounters Encounter Diagnosis Start Date Code Code Sys tem Effusion, right foot 05/15/2024 SNOMED- CT Personal Care Team Section Performer Name Performer Role Active Date Inactive Da te Discharge Summary Notes [facility] 05/16/2024 20:25 Final Impression CLOSED FRACTURE OF METATARSAL BONE OF RIGHT FOOT: ICD9CM: SNOMEDCT: 84974897343144620 XRI65ZQ: Y26020A Status: Acute Source: Entered: 05/15/24 Addressed: 05/15/24 Education Foot Fracture in Adults Disposition Diagnosis Diagnosis: Diagnosis:Closed fracture of metatarsal bone of right foot Closed fracture of metatarsal bone of right foot Diagnosis Date: Diagnosis Date:05/15/2024 05/15/2024 Addressed Date: Addressed Date:05/15/2024 05/15/2024 Disposition: Discharged Diagnosis Specific Education: Diagnosis related handout given Activity: May work without restrictions with wearing walking boot Follow-Up: With Orthopedics, In 2 - 5 days, take radiology disc with you to your appointment Patient Signature: Sign and date this document if you have received and understand your discharge instructions and plan of care. Patient: Person Authorized to Consent for Patient: Date: Time: Pain/Fever: You may give Acetaminophen (Tylenol) every 4 hours alternated with Ibuprofen (Motrin, Advil) every 6 hours as needed Procedures / Tests Performed In ER: X-Ray Education Given to Patient: Patient's responsibilities Disposition: Discharged Imaging Narrative Notes [facility] 06/25/2024 03:45 [id number] MIRNA MCGHEE [id number] 05/15/2024 Page 1 [facility] [address] [place], [place] [address] Diagnostic Imaging Report Patient Name: MIRNA MCGHEE : 1980 Sex: F Hospital#: [id number] Exam Date: 05/15/2024 Patient Class: ER Referring Physician: SUSAN JENSEN Reason for Exam: REASON FOR PROCESS: TRAUMA Procedure: FOOT RT 3+ VIEWS EXAM: RADIOGRAPHS, RIGHT FOOT HISTORY: Right foot pain, injury. COMPARISON: None. TECHNIQUE: Three views. FINDINGS: Bone mineralization normal. Moderate hallux valgus present. There is transverse lucency through the proximal shaft of the fifth metatarsal with some non bridging callus formation suggested. No other fractures seen. There is no dislocation. Mild joint space narrowing and spurring noted throughout multiple joints of the foot. Moderate-sized plantar calcaneal spur is present. Some lateral subcutaneous edema noted. IMPRESSION: 1. Nondisplaced fifth metatarsal shaft fracture, which appears subacute. 2. Degenerative changes and hallux valgus. THIS IS AN ELECTRONICALLY VERIFIED REPORT 05/15/2024 01:45:00 PM: Stephen Moody M.D. Stephen Moody M.D. [id number] MIRNA MCGHEE [id number] 05/15/2024 Page 1 of 2 [id number] MIRNA MCGHEE [id number] 05/15/2024 Page 2 TD: 05/15/2024 01:45:00 PM Trans ID: [facility] [id number] MIRNA MCGHEE [id number] 05/15/2024 Page 2 of 2 History and Physical Notes [facility] 05/16/2024 20:25 Chief Complaint and Reason for Visit RT FOOT INJURY Onset: 05/15/24 Triage ED Arrival Date/Time: 12:13:00 ED Arrival Date/Time: 05/15/2024 12:13:00 Triage Date/Time: 05/15/2024 12:15 Triage Location: Bedside - treatment area Mode of Arrival: Private vehicle Accompanied by: Spouse Communication Considerations: None Reported History Reported by: Patient Primary Care Provider: kenny Seen in ED Within Last 72 Hours: No ED History of Present Illness DATE / TIME Seen by Provider: 05/15/2024 12:25 History of Present Illness 43 year old female presents to the ED with complaints of pain and swelling in the dorsal and lateral aspect of the foot. The patient stepped wrong this morning while standing up on her right foot. She instantly felt a pop and has had pain and swelling. She has a history of fractures of the right foot. Disposition: Discharged Disposition: Discharged All History (Non-provider) Data1 Clinical Observation of Pain: Stressed; tensed expression Pain Location: Chest Chest Pain Location: Mid-chest Chest Pain: Aspirin Within 24 Hours of Onset: No Pain Quality: Pressure Exacerbating Factors: Cough/Deep breathing Relieving Factors: None Reported Pain Management Provider: No provider reported Pain Level: 6 Chief Complaint co right foot pain after standing from kneeling position and felt a pop top of foot. happened 1 hour ago. has broke same foot 4 times . took ibuprofen 800poat time of accident Time of Symptom Onset: 1 hour(s) ago Have You Had a Fall or Trauma in the Last 7 to 14 Days?: Yes Is Pain Present: Yes Clinical Observation of Pain: Relaxed; calm expression Pain Location: Lower extremity Pain Location: Lower Extremity: Right - Foot Pain Quality: Aching Exacerbating Factors: Moving affected area, Weight bearing Relieving Factors: None Reported Pain Management Provider: No provider reported Therapies Initiated Prior to Arrival: None Reported Therapies in Use at Time of Arrival: None Reported Oxygen in Use on Arrival: No Tetanus Vaccine: Within 5 years COVID-19 Vaccine: 2 of 2 doses received Pain Level: 4 All History Data ED Provider Note Chief Complaint right foot injury DATE / TIME Seen by Provider: 05/15/2024 12:25 Mode of Arrival: Private vehicle Past Medical History hx of right foot fracture HTN HLD Anxity Asthma Current Medications See medication list Social History See nurse's notes History of Present Illness 43 year old female presents to the ED with complaints of pain and swelling in the dorsal and lateral aspect of the foot. The patient stepped wrong this morning while standing up on her right foot. She instantly felt a pop and has had pain and swelling. She has a history of fractures of the right foot. Allergies LISINOPRIL: DRUG Active IMITREX: BRANDNAME Active DOXYCYCLINE: DRUG Active No Known Food Allergies: FOOD Active FLU VACCINE: HIVES,RASH, ELEVATED HEART RATE CLASS Active Vital Signs Vital Signs/Height/Weight/O2 Therapy Pain Scale 6 Temperature 98.7 F 37.1 C Oral Pulse 58beats/minute Respiration 18 Blood Pressure 179/105 Lying L Arm O2 Saturation 98 % Pain Scale 4 Height 62 inches 157.480 cm Weight 245 lbs 111.13 kg 967729 g Body Mass Index 44.81 Body Surface Area 2.2 Hemodynamic Vital Signs Mean Arterial Pressure 130 mmHg Screenings Actual or Suspected Infection: Pneumonia, Empyema, Cough, Increased work of breathing SIRS: Acute Altered Mental Status: No SIRS: Hyperglycemia: Unknown SIRS: Hyperthermia: No SIRS: Hypothermia: No SIRS: Tachycardia: No SIRS: Tachypnea: No SIRS: Leukocytosis: Unknown SIRS: Leukopenia: Unknown SEPSIS: CRITERIA NOT MET; systemic inflammatory response syndrome negative Time Zero - Screening Outcome: Sepsis screen NEGATIVE Venue and/or Context: ED triage Provider Notified of Screening Outcome: No Does Patient Have a Fever: No Patient Symptoms/Conditions: Congestion / Runny nose, Cough Patient Exposure Risk in Last 30 Days: Denies exposure risk Potential Infection Risk Assessment: Criteria NOT MET SCORING: APHQ-2 score ranges from 0 to 6; patients with 3 or more should be further evaluated with thePHQ-9, other diagnostic instrument(s), or a direct interview to determine whether they meet criteria for a depressive disorder. Little Interest / Pleasure In Things: 0 - Not at all Feeling Down, Depressed Or Hopeless: 0 - Not at all PHQ-2 Total Score: 0 Proceed with PHQ-9: No Elopement Risk Criteria: Does not meet elopement risk criteria Elopement Risk Safety Measures Implemented: Not applicable Alcohol Intake: Frequent Use, 2 Drinks Per Day Smoking History: Current every day smoker, , Tobacco Use: Currently uses tobacco: smokes, Smoke amount / frequency: 1/2 ppd Fall History: 0 - No history of falls Secondary Diagnosis: 0 - None Ambulatory Aid: 0 - None needed IV or IO Access: 0 - No Gait: 0 - Normal Mental Status: 0 - Oriented to own ability [place] Fall Risk - Total Score: 0 Fall Risk Assessment: Low risk: 0 - 24 Falls: Completed fall risk assessment Begin Sepsis Screen: Adult Actual or Suspected Infection: None Reported SEPSIS: CRITERIA NOT MET; no actual or suspected infection Time Zero - Screening Outcome: Sepsis screen NEGATIVE Venue and/or Context: ED triage Provider Notified of Screening Outcome: No Begin Infection Risk Screen: Yes Does Patient Have a Fever: No Potential Infection Risk Assessment: Criteria NOT MET Begin Suicide Screen: ED: Site-Defined Suicide Screen SCORING: APHQ-2 score ranges from 0 to 6; patients with 3 or more should be further evaluated with thePHQ-9, other diagnostic instrument(s), or a direct interview to determine whether they meet criteria for a depressive disorder. Little Interest / Pleasure In Things: 0 - Not at all Feeling Down, Depressed Or Hopeless: 0 - Not at all PHQ-2 Total Score: 0 Proceed with PHQ-9: No Begin Elopement Risk Screen: Yes Elopement Risk Criteria: Does not meet elopement risk criteria Elopement Risk Safety Measures Implemented: No Begin Alcohol Use Screen: Yes Alcohol Intake: Never Begin Tobacco Use Screen: Yes Smoking History: Never smoker, , Begin Fall Risk Screen: Yes Fall History: 0 - No history of falls Secondary Diagnosis: 0 - None Ambulatory Aid: 0 - None needed IV or IO Access: 0 - No Gait: 0 - Normal Mental Status: 0 - Oriented to own ability [place] Fall Risk - Total Score: 0 Fall Risk Assessment: Low risk: 0 - 24 Patient/Family History Drug Use History Has had tobacco screening performed. Screening date: 05/15/2024. Never smoker. Review of Systems ROS Otherwise Negative: Complete review otherwise negative, Pain and swelling in dorsal and lateral aspect of right foot. ED Physical Exam Skin Skin Coloring: Cheriton Skin Temperature / Moisture: Warm and dry Skin Integrity: Intact Cardiovascular Heart Sounds: Regular heart rate and rhythm Musculoskeletal Right Lower Extremity: Neurovascularly intact, sl edema top of ankle. no bruising or break in skin 1215 torm9 perwc.assisted to stretcher. no bruising or abrasions noted to foot .sledema to top of ankle but ptdenespain at this spot. most pain [id number]. ice pack placed to site [facility] for assess. Physical Assessment Clinical Presentation on ED Arrival: Breathing unassisted, Circulation adequate, No bleeding, Conscious, No distress Clinical Presentation on ED Arrival: Airway patent Visual Acuity Evaluated: No Wound(s) / Pressure Ulcer(s) Present: No Triage Level: 4 - TRIAGE LEVEL IV Respiratory Airway Clearance: Patent Breathing Pattern: Non-labored Apparent Respiratory Distress: No Cough: None Reported Sputum: No Left Lung Sounds: Clear Right Lung Sounds: Clear All Physical Exam Data Physical Exam Appearance Common Findings: Age appropriate behavior, Alert, well appearing, NAD, Oriented to person / place / time, Well-developed, well-nourished Eye Exam Common Findings: Normal appearance eyes, Normal gaze alignment, Normal conjunctiva, PERRL Chest Exam Common Findings: Chest normal appearance, CTA bilaterally, No respiratory distress, Normal respiratory effort, Normal respiratory rate Cardiac Exam Common Findings: Normal cardiac exam (RRR, No M/G/R) Mus/Sk Exam Common Findings: Pain in right foot with weight bearing. Skin Exam Common Findings: Skin exam normal except as noted, Swelling in the dorsal and lateral aspect of the right foot. No bruising. Neuro Exam Common Findings: Moves All Extremities, Coordination Normal, Speech Normal Mental Status Exam: Oriented to Person/Place/Time, Recent memory intact, Remote memory intact Level of Consciousness: Alert, Awake, Interactive Affect: Normal, Pleasant, Calm, Good eye contact ED Course ED Provider Note Initial Impression: right foot pain and swelling Differential Diagnosis: fracture, dislocation, soft tissue injury Current Condition: Stable Treatment Response: Unchanged condition ED Course: History and physical examinations completed. The patient's radiology results shows a nondisplaced fifth metatarsal shaft fracture, which appears subacute. Reviewed the radiology results with the patient. The patient has a history of fracture in this foot but not in this location of the foot. The patient has a walking boot for her right foot and wants to use it until she sees her orthopedic surgeon. She called her orthopedic physician and he said she can use the boot without any work restrictions and she will see him in his office next week. A disc containing the patient's radiology films was given to the patient and she was instructed to take the disc with her to her appointment. ED Interventions Labs: Flu, Rapid Strep Safety: ID armband applied, Call light within reach, Side rail elevated General: Ice pack Labs: None Medication: None Respiratory: None Safety: Bed / Cart wheels locked, ID armband applied, Call light within reach, Allergy armband applied, Side rail elevated ED Assessment ED Provider Note Impression metatarsal fracture of right foot ED Education Foot Fracture in Adults ED Plan ED Provider Note Is This a Cardiac or Chest Pain Patient?: No Disposition: Discharged Evaluation Notes The patient is discharged home with a disc containing her radiology films and instructed to follow up with her orthopedic surgeon within 2 - 5 days. The patient has an orthopedic walking boot for her right foot that she plans of wearing until her appointment. ED Disposition Disposition: Discharged Disposition: Discharged All Disposition Data Code Status: Full code Advance Directives: No Triage Disposition: To room 9 Triage Disposition Date / Time: 05/15/2024 12:15 Person Assuming Patient Care: Name/Title: bowen phan Length of Triage: 5 to 10 minutes Diagnosis Diagnosis: Diagnosis:Closed fracture of metatarsal bone of right foot Closed fracture of metatarsal bone of right foot Diagnosis Date: Diagnosis Date:05/15/2024 05/15/2024 Addressed Date: Addressed Date:05/15/2024 05/15/2024 Disposition: Discharged Diagnosis Specific Education: Diagnosis related handout given Activity: May work without restrictions with wearing walking boot Prescriptions: None Reported Follow-Up: With Orthopedics, In 2 - 5 days, take radiology disc with you to your appointment Patient Signature: Sign and date this document if you have received and understand your discharge instructions and plan of care. Patient: Person Authorized to Consent for Patient: Date: Time: Pain/Fever: You may give Acetaminophen (Tylenol) every 4 hours alternated with Ibuprofen (Motrin, Advil) every 6 hours as needed Procedures / Tests Performed In ER: X-Ray Education Given to Patient: Patient's responsibilities Code Status: Full code Disposition: Discharged Prescriptions: None Reported Instructions Given to: Patient Verbalizes Understanding Instructions: Yes Discharged To: Home Mode of Departure: Wheelchair Accompanied by: Spouse/SO ED Departure Date / Time: 05/15/2024 14:14
--- OUTSIDE RECORDS SUMMARY | 2025-01-04 19:39 | XMS_ITS | Encounter Summary ---
Author Organization [facility] Address [address] [place] [address] Care Team Providers Care Cloth Beamer Name Role Phone Jorge Abarca MD Primary Care Provider Encounter Details Date Type Department Care Team (Late st Contact Info) Description 09/11/2016 Orders Only [facility] John Patino - Primary Care [address] [place] [address] Pina Diaz, RN Social History Tobacco Use Types Packs/Day Years Used Date Smoking Tobacco: Never Alcohol Use Standard Drinks/Week Comments Yes 0 (1 standard drink = 0.6 oz pur e alcohol) rarely Comments Unknown Sex and Gender Information Value Date Recorded Sex Assigned at Not on file Legal Sex Female 8:15 PM CDT Gender Identity Not on file Sexual Orientation Not on file documented as of this encounter Plan of Treatment Not on file documented as of this encounter Visit Diagnoses Not on filedocumented in this encounter Care Teams Cloth Beamer Relationship Specialty Start Date End Date Jorge Abarca MD [address] [place] [address] PCP - General Family Medicine 05/14/16 documented as of this encounter
--- OUTSIDE RECORDS SUMMARY | 2025-01-04 19:39 | XMS_ITS | Encounter Summary ---
Author Organization [facility] [place] Address [address] [place] [address] Care Team Providers Care Guidance Adviser Name Role Phone Jorge Abarca MD Primary Care Provider Encounter Details Date Type Department Care Team (Late st Contact Info) Description 09/10/2016 Orders Only [facility] John Patino - Primary Care [address] [place] [address] Melvina Carey LPN Social History Tobacco Use Types Packs/Day Years [...] on filedocumented in this encounter Care Teams Guidance Adviser Relationship Specialty Start Date End Date Jorge Abarca MD [address] [place] [address] PCP - General Family Medicine 05/14/16 documented as of this encounter
--- OUTSIDE RECORDS SUMMARY | 2025-01-04 19:39 | XMS_ITS | Clinical Summary ---
Author Organization [facility] Address [address] [place] [address] Care Team Providers Care Melt House Supervisor Name Role Phone Jorge Abarca MD Primary Care Provider Allergies Active Allergy Reactions Criticality Noted Date Comments Doxycycline Vomiting Medium 02/24/2019 Sumatriptan Succinate Dyspnea 09/04/2016 Pass out Lisinopril Other (See Comments) 09/04/2016 Eyes bleed Medications acyclovir (ZOVIRAX) 800 MG tablet TAKE 1 TABLET BY MOUTH THREE TIMES DAILY 0 7 Active bisacodyL (DULCOLAX) 5 mg EC tablet Take 5 mg by mouth daily as needed for constipation . Active cyanocobalamin, vitamin B12, 1,000 mcg/mL injectionIndicati ons:B12 deficiency 1 ml weekly x 6 weeks then monthly 6 mL 5 0 Active amLODIPine (NORVASC) 5 MG tabletIndications :Essential hypertension Take 1 tablet (5 mg total) by mouth daily. 30 tablet 3 1 Active tiZANidine (ZANAFLEX) 4 MG tablet Take 4 mg by mouth every 6 (six) hours as needed for muscle spasms. Active POTASSIUM ORAL Take by mouth. Active ALPRAZolam (XANAX) 0.5 MG tabletIndications :Anxiety Take 1 tablet (0.5 mg total) by mouth 2 (two) times a day as needed for anxiety. 60 tablet 1 Active losartan (COZAAR) 50 MG tabletIndications :Essential hypertension Take 1 tablet (50 mg total) by mouth 2 (two) times a day. 60 tablet 3 2 Active Active Problems Problem Noted Date Diagnosed Date B12 deficiency 07/17/2017 Anxiety 07/17/2017 Vitamin D deficiency 07/17/2017 Hyperlipidemia 07/17/2017 Essential hypertension 07/17/2017 Depression 07/17/2017 Immunizations Immunization Administration Dates Next Due influenza, injectable, trivalent (AFLURIA/FLUZON E MDV) 04/22/2018 Family History Medical History Relation Name Comments Heart disease Maternal Grandfather Hyperlipidemia Maternal Grandfather Hypertension Maternal Grandfather Hyperlipidemia Maternal Grandmother Hypertension Maternal Grandmother Stroke Maternal Grandmother Diabetes Paternal Aunt Diabetes Paternal Grandmother Hypertension Paternal Grandmother Relation Name Status Comments Maternal Grandfather Maternal Grandmother Paternal Aunt Paternal Grandmother Social History Tobacco Use Types Packs/Day Years Used Date Smoking Tobacco: Never Smokeless Tobacco: Never Tobacco Cessation:Counseling Given: Yes Alcohol Use Standard Drinks/Week Comments Yes 0 (1 standard drink = 0.6 oz pur e alcohol) rarely Comments Unknown Sex and Gender Information Value Date Recorded Sex Assigned at Not on file Legal Sex Female 8:15 PM CDT Gender Identity Not on file Sexual Orientation Not on file Last Filed Vital Signs Vital Sign Reading Time Taken Comments Blood Pressure 138/94 11/02/2020 8:18 AM CDT Pulse 86 11/02/2020 8:18 AM CDT Temperature 36.6 C (97.9 F) 11/02/2020 8:18 AM CDT Respiratory Rate 20 09/04/2016 4:03 PM MEDICAL SUPPORT SPECIALIST Oxygen Saturation 97% 11/02/2020 8:18 AM CDT Inhaled Oxygen Concentration - - Weight 109 kg (241 lb) 11/02/2020 8:18 AM CDT Height 157.5 cm (5' 2 ) 11/02/2020 8:18 AM CDT Body Mass Index 44.08 11/02/2020 8:18 AM CDT Plan of Treatment Health Maintenance Due Date Last Done Comments Annual Wellness 1981 Varicella Vaccines (1 of 2 - 13+ 2-dose series) 1994 Hepatitis B Vaccines (1 of 3 - 19+ 3-dose series) 2000 Pap Smear 02/12/2020 02/11/2017 Mammogram 2021 Influenza Vaccination (Seaso n Ended) 2025 04/22/2018 Td, Tdap Vaccines Adult 07/12/2027 07/12/2017 HIB Vaccines Aged Out No longer eligi ble based on patient's age to complete this topic HPV Vaccines Aged Out No longer eligi ble based on patient's age to complete this topic Hepatitis A Vaccines Aged Out No long er eligible based on patient's age to complete this topic IPV Vaccines Aged Out No longer eligi ble based on patient's age to complete this topic Meningococcal Vaccines Aged Out No lo nger eligible based on patient's age to complete this topic Pneumococcal Vaccine: Pediat rics (0 to 5 Years) and At-Risk Patients (6 to 49 Years) Aged Out No longer eligi ble based on patient's age to complete this topic RSV Mab Nirsevimab (Beyfortu s) <20 months Aged Out No longer eligible b ased on patient's age to complete this topic Rotavirus Vaccines Aged Out No longer eligible based on patient's age to complete this topic Insurance [place] [id number] [employer] Care Teams Melt House Supervisor Relationship Specialty Start Date End Date Jorge Abarca MD [address] [place] [address] PCP - General Family Medicine 05/14/16
--- OUTSIDE RECORDS SUMMARY | 2025-01-04 19:39 | XMS_ITS | Data Portability ---
Author Organization [facility] [employer] [facility] Address [address] [place] [address] Assessment Encounter Date Assessment Date Assessment LastModified [...] understanding . Follow up as noted below. [email or web address] Not available 01/20/2024 10:02:12 Plan of Treatment Reminders Order Date Submit Date Provider Last Modified By Organization Details Last Modified Time Details Appointments None recorded. Lab vitamin D, 25-hydroxy, total, serum 2023 TAMMIE Not available 15:14:07 CBC w/ auto diff 2023 TAMIME Not available 15:24:43 CMP, serum or plasma 2023 TAMMIE Not available 15:17:42 lipid panel, serum 2023 024 TAMMIE Not available 4 15:17:05 vitamin B12 + folate, serum or blood 2023 024 TAMMIE Not available 4 15:16:[address] referral 2022 023 Sergio Sanchez MD, [address] [facility], [place], [address], 3 11:08:08 Procedures None recorded. Surgeries None recorded. Imaging None recorded. Medication Orders metoprolol tartrate 50 mg tablet 2023 024 [facility], [address] [facility], [address], [place], [address], 4 15:43:13 prednisone 10 mg tablet 2023 024 [facility], [address] [place] [address] [place], [id number], 4 10:46:22 atorvastati n 20 mg tablet 2023 024 TAMMIE Not available 4 10:18:45 hydroxyzine HCl 25 mg tablet 2023 024 [facility], [address] [facility] [address], [address], [place], [address], 4 11:39:45 Wellbutrin XL 150 mg 24 hr tablet, extended release 2023 024 [facility], [address], [address], [place], [address], 4 11:39:48 Zanaflex 4 mg tablet 2023 024 [facility], [address], [address], [place], [address], 4 16:16:06 spironolact one 25 mg tablet 2023 024 [facility] [place], [address] [place] [address], [address], [place], [address], 4 15:43:14 metoprolol tartrate 50 mg tablet 2022 023 TAMMIE Not available 3 16:31:15 tizanidine 4 mg tablet 2022 023 Not available 4 09:59:59 hydroxyzine HCl 25 mg tablet 2022 023 [email or web address] Not available 4 10:01:09 atorvastati n 20 mg tablet 2022 023 TAMMIE Not available 4 14:54:54 Wellbutrin XL 150 mg 24 hr tablet, extended release 2022 023 [email or web address] Not available 4 10:00:09 alprazolam 0.5 mg tablet 2022 023 [email or web address] Not available 4 09:59:12 cyanocobala min (vit B-12) 1,000 mcg/mL injection solution 2022 023 TAMMIE Not available 3 17:12:49 ergocalcife rol (vitamin D2) 1,250 mcg (50,000 unit) capsule 2022 023 TAMMIE Not available 4 14:54:53 spironolact one 25 mg tablet 2022 023 TAMMIE Not available 4 14:54:56 clonidine HCl 0.1 mg tablet 2022 023 [email or web address] Not available 4 10:09:15 losartan 50 mg-hydrochl orothiazide 12.5 mg tablet 2022 023 [email or web address] Not available 4 10:09:31 spironolact one 25 mg tablet 2022 023 TAMMIE Not available 3 11:39:39 clonidine HCl 0.1 mg tablet 2022 023 [email or web address] Not available 4 10:09:15 phentermine 37.5 mg tablet 2022 023 [email or web address] Not available 4 10:09:35 tranexamic acid 650 mg tablet 2022 023 TAMMIE Not available 3 17:12:39 phentermine 37.5 mg tablet 2022 023 [email or web address] Not available 4 10:09:35 metoprolol tartrate 50 mg tablet 2022 023 TAMMIE Not available 3 15:44:31 Patient Targets Encounter Date Encounter Id Patient Goals Patient Target Last Modified By Organization Details Last Modified Time 11/15/2022 [id number] maintain healthy dietmaintain healthy weightmaintain blood pressure less than or equal to 150/90 [email or web address] Not available 11/15/2022 10:01:03 12/13/2022 [id number] decrease body weight 1-3 pounds per month Not available 12/13/2022 10:05:54 04/07/2023 [id number] blood pressure 120/80mmHgget spots on her face removed Not available 04/08/2023 17:29:26 Patient Instructions Encounter Date Encounter Id Patient Instructions Last Modified By Organization Details Last Modified Time 12/13/2022 [id number] take medication as prescribed increase fluids encourage diet and exercise keep appointment with Gynecology Not available 12/13/2022 10:08:57 04/07/2023 [id number] learning about relief for back pain Not available 04/07/2023 17:11:47 take medication as prescribed increase fluids will refer to dermatology Not available 04/08/2023 17:29:50 01/20/2024 [id number] labs pending Discussed keeping daily blood pressure log Increase water intake Watch sodium and caffeine intake Use heat and cold therapy for 15 minutes at a time Rest affected area as much as possible Alternate tylenol and ibuprofen q4h PRN for pain as appropriate Educated on gentle stretching [email or web address] Not available 01/20/2024 10:19:07 Reason for Referral Dynamotor Repairer Referral for M elanocytic nevus of skin Referring Physician: Jenny Mcclellan, Family Medicine, Encounter Date: 04/07/2023 Results Created Date Observation Date Name Description Value Unit Range Abnormal Flag Note LastModifiedBy Organization Detail LastModifiedTime Result Notes None recorded. Problems Name Problem SNOMED Code Status Onset Date Resolution Date Notes Provider Name and Address Organization Details Recorded Time Obesity 204125270 Active 2022 Not Available [facility] 3 11:28:46 Essential hypertensi on 13815084 Active 2022 Not Available [facility] 3 11:28:46 Disorder of menstruati on 084906296 Active 2022 Not Available [facility] 3 11:28:46 Menorrhagi a 545584573 Active 2022 Not Available [facility] 3 11:28:46 Anxiety 58040379 Active 2023 Alanna Angelo, DIMAS [address] [place], [address] , [facility] 4 10:10:04 Disorder of vitamin B12 124219627 Active 2023 Alanna Angelo APRN [address] [place], [address] , [facility] 4 10:12:10 Pain of right hip joint 6949657280449 02 Active 2023 Alanna Angelo APRN [address] [place], [address] , [facility] 4 10:14:20 Vitamin D deficiency 71556823 Active 2023 Alanna Angelo APRN [address] [place], [address] , [facility] 4 10:15:01 Hypertensi ve disorder 71151761 Active 2019 Not Available [facility] 3 11:28:46 Depressive disorder 30355155 Active 2019 Not Available [facility] 3 11:28:46 Hyperlipid emia 84015069 Active 2019 Not Available [facility] 3 11:28:46 Problem Notes None recorded. Procedures Surgical History Date Name Laterality Status Provider Name and Address Organization Details Recorded Time 2 delivery completed Pari Rodriguez [facility] 06/26/2021 14:52:58 repair of tendon completed Ana Rivas [facility] 08/11/2019 16:38:29 Imaging Results None recorded. Procedure Notes None recorded. Medical Equipment None Reported. Allergies Allergen ID Allergen Name Allergen Category Reaction Reaction Severity Criticality Documentation Date Start Date Code Code System Note Provider Name and Address Organization Details Recorded Time 3174 lisinopri l medicatio n Not available Not available Not available 08/11/2019 70883 RxNorm Ana Rivas [facility] 0 16:32:00 3175 doxycycli ne Not available Not available Not available Not available 08/11/2019 3640 RxNorm Ana Rivas [facility] 0 16:32:09 3176 Imitrex medicatio n Not available Not available Not available 08/11/2019 09366 3 RxNorm Ana Rivas [facility] 0 16:32:15 Medications Name Sig [...] Not Available Not Available Not Available Transderm-S dynamotor repairer 1 mg over 3 days transdermal patch [...] azelastine 205.5 mcg (0.15 %) nasal spray [place] 1 spray twice a day by intranasa [...] 3 157.48 cm 76 /min 44.6 kg/m2 347864. 46 g 99 % 99 % 169 mm[Hg] 81 mm[Hg] [facility] 3 09:14:35 Date Recorded Body height Body mass index (BMI) Body weight Heart rate Body temperature Respiratory rate Oxygen saturation Oxygen saturation in Arterial blood by Pulse oximetry Systolic blood pressure Diastolic blood pressure Provider Name and Address Organization Details Last Updated DateTime 3 157.48 cm 43.7 kg/m2 764506. 29 g 67 /min 97.9 [degF] 16 /min 98 % 98 % 152 mm[Hg] 95 mm[Hg] Madhuri Tamez [facility] 3 09:08:19 Date Recorded Body height Heart rate Respiratory rate Body temperature Body mass index (BMI) Body weight Oxygen saturation Oxygen saturation in Arterial blood by Pulse oximetry Systolic blood pressure Diastolic blood pressure Provider Name and Address Organization Details Last Updated DateTime 4 157.48 cm 61 /min 18 /min 98.3 [degF] 43.4 kg/m2 725063. 11 g 99 % 99 % 139 mm[Hg] 82 mm[Hg] Cherelle Castro [facility] 4 09:41:48 Date Recorded Body height Heart rate Respiratory rate Body temperature Body mass index (BMI) Body weight Systolic blood pressure Diastolic blood pressure Provider Name and Address Organization Details Last Updated DateTime 3 157.48 cm 63 /min 18 /min 98.4 [degF] 43.8 kg/m2 035986. 37 g 175 mm[Hg] 102 mm[Hg] [facility] 3 09:10:34 Date Recorded Body height Body mass index (BMI) Body weight Heart rate Oxygen saturation Oxygen saturation in Arterial blood by Pulse oximetry Systolic blood pressure Diastolic blood pressure Provider Name and Address Organization Details Last Updated DateTime 3 157.48 cm 44.6 kg/m2 947055. 9 g 66 /min 99 % 99 % 161 mm[Hg] 89 mm[Hg] Christelle Yeh [facility] 3 17:00:40 Social History Question Answer Notes LastModified by [employer] Details LastModified Time Tobacco Smoking Status Never [facility]oker [facility] 08/11/2019 16:37:38 What Is Your Relationship Status? [email or web address] Information not available 06/26/2021 Sex: Unknown Functional Status Question Answer Note LastModified by [employer] Details LastModified Time Do you or have you ever used any other forms of tobacco or nicotine? No [email or web address] Information not available 06/26/2021 What is your level of alcohol consumption? None [email or web address] Information not available 06/26/2021 Do you or have you ever used smokeless tobacco? Never used smokeless tobacco [email or web address] Information not available 08/11/2019 Do you or have you ever used e-cigarettes or vape? Never used electronic cigarettes [email or web address] Information not available 08/11/2019 Mental Status None [...] SNOMED-CT Code Diagnosis ICD10 Code Diagnosis Note [id number] Jenny Mcclellan NP [facility] [address] [place] [address] 08/11/2019 16:25:02 08/11/2019 17:24:07 Pain of right hip joint 0056562295 67759 M25.551 [id number] Merrill Fernandez DO [facility] [address] [place] [address] 09/03/2019 09:07:10 09/14/2019 16:27:20 Upper respiratory infection 57094652 J06.9 [id number] Jenny Mcclellan NP [facility] [address] [place] [address] 09/13/2019 09:29:32 09/15/2019 09:29:03 Acute sinusitis 49528532 J01.90 Acute bronchitis 3170341 2 J20.9 [id number] Bryant Ahn NP [facility] [address] [place] [address] 01/28/2020 14:36:55 01/28/2020 15:18:12 Acute sinusitis 93309132 J01.90 Pruritic rash 98112020 L 28.2 [id number] Jenny Mcclellan NP [facility] [address] [address] 07/27/2020 10:16:11 07/27/2020 11:41:41 Pain in right foot 5205735162 87888 M79.671 wear walking boot [id number] Jenny Mcclellan NP [facility] [address] [place] [address] 06/06/2021 09:27:27 06/06/2021 14:48:54 Acute bronchitis 91105642 J20.9 31061 Merrillfabrice Fernandez [facility] [address] [place] [address] 06/29/2021 09:25:09 07/19/2021 09:38:37 Obesity 349200279 E66.9 will start phentermin e, follow up in a week or so to check progress and blood pressure [id number] Jenny Mcclellan NP [facility] [address] [place] [address] 07/04/2021 09:04:02 07/23/2021 17:16:17 [id number] Merrill Jim [facility] [address] [place] [address] 07/20/2021 08:47:46 08/12/2021 17:51:48 Anxiety 30810538 F41.9 Essential hypertension 48955157 I10 change losartan to losartan / HCT Obesity 499985554 E66.9 [id number] Merrill Fernandez [facility] [address] [place] [address] 08/31/2021 11:10:55 09/20/2021 09:24:05 Herpes simplex 30386614 B00.9 Contact dermatitis 66247 004 L25.9 Vitamin D deficiency 347 48273 E55.9 Obesity 983622410 E66.9 Depressive disorder 3548 9007 F32.A 66126 Merrill [facility] [address] [place] [address] 10/12/2021 16:09:42 10/16/2021 15:00:40 Obesity 785605123 E66.[address] [facility] [address] [place] [address] 11/09/2021 16:25:16 12/20/2021 12:38:08 Essential hypertension 30981097 I10 change losartan to losartan / HCT and higher dose Obesity 171742069 E66.9 Vitamin B1 2 deficiency (non anemic) 59821178 E53.8 Hypertensive disorder 38 124159 I10 [id number] Merrill [facility] [address] [place] [address] 12/07/2021 10:26:50 12/11/2021 11:31:37 Obesity 222846317 E66.9 [id number] Merrill [facility] [address] [place] [address] 03/01/2022 09:51:25 03/05/2022 17:20:31 Anxiety 72687391 F41.9 Hypertensive disorder 38 657355 I10 [id number] CARL BERG [facility] [address] [place] [address] 08/26/2022 09:00:02 10/17/2022 17:36:01 Hypertensive disorder 69725195 I10 Anxiety 92632280 F41.9 Hyperlipidemia 82625459 E78.5 [id number] CARL BERG [facility] [address] [place] [address] 09/11/2022 09:03:43 10/17/2022 18:26:04 Essential hypertension 29000321 I10 Disorder o f menstruation 088985364 N92.6 [id number] CARL BERGalessandra [facility] [address] [place] [address] 10/29/2022 14:14:23 11/06/2022 13:53:36 Menorrhagia 698068673 N92.0 Hypertensive disorder 38 185886 I10 [id number] CARL BERGalessandra [facility] [address] [place] [address] 11/15/2022 09:01:32 11/15/2022 10:17:02 Hypertensive disorder 93438551 I10 Obesity 685406399 E66.9 [id number] Jenny Mcclellan NP [facility] [address] [place] [address] 12/13/2022 09:02:15 12/13/2022 10:10:02 Renewal of prescription 459360924 Z76.0 Menorrhagia 299706888 N9 2.0 Obesity 088375673 E66.9 [id number] CARL BERGalessandra [facility] [address] [place] [address] 02/18/2023 09:05:36 03/24/2023 17:04:53 Essential hypertension 18314673 I10 [id number] LORENA CHRISTINE DO [facility] [address] [place] [address] 04/07/2023 16:52:54 04/09/2023 09:22:02 Essential hypertension 91794480 I10 Hypertensive disorder 38 479593 I10 Vitamin B1 2 deficiency (non anemic) 45037096 E53.8 Hyperlipidemia 50727634 E78.5 Vitamin D deficiency 347 18044 E55.9 Anxiety 92269687 F41.9 Low back pain 416388777 M54.50 Melanocyti c nevus of skin 733762916 D22.9 Renewal of prescription 428241124 Z76.0 [id number] Alanna Angelo APRN [facility] [address] [place] [address] 01/20/2024 09:34:31 01/20/2024 14:57:49 Essential hypertension 24141859 I10 Hyperlipidemia 50055773 E78.5 Hypertensive disorder 38 768924 I10 Anxiety 87520225 F41.9 Adult heal th examination 256073551 Z00.00 Disorder o f vitamin B12 032502402 E53.8 Renewal of prescription 282810772 Z76.0 Pain of ri ght hip joint 0816160510 46479 M25.551 Vitamin D deficiency 347 57310 E55.9 Health Concerns Section Related Observation LastModified by Organization Detai ls LastModified Time None Recorded Concern Status LastModified by Organization Details LastModified Time None Recorded Advance Directives Directive None Recorded Payers Insurance Date Sequence Insurance Name Policy Number Policy Morrow Covered Member ID Morrow Member ID Guarantor Name 01/28/2020 1 [facility] - [employer] - CIGNA (PPO) [id number] Kevon Martinez [id number] Magaly Martinez 07/27/2020 1 [employer] - 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) Magaly Martinez [id number] Magaly Martinez 01/20/2024 1 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) [id number] Magaly Martinez [id number] Magaly Martinez 02/29/2020 2 [employer] (PPO) Magaly Martinez [id number] Magaly Martinez 07/27/2020 1 [facility]-[employer] - S[employer] HE[employer] STRATEGIES - CIG[employer] (PPO) [id number] Magaly Martinez [id number] Magaly Martinez Notes Date Note Type Note [...] [address], [place], [address], [facility] 11/15/2022 10:01:48 12/13/2022 text/html 41 year old [...] NP [address], [place], [address], [facility] 12/13/2022 10:09:20 02/18/2023 text/html Hypertension IM/FMReported bypatient.Onset/Ti [...] [address], [place], [address], [facility] 03/24/2023 16:17:09 04/07/2023 text/html 42 year old [...] Mcclellan NP [address] [place], [address], [facility] 04/08/2023 17:30:00 01/20/2024 text/html 43 year old adriana guerrier presents today for wellness. Needs medications refilled. Has been having right hip pain. 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 Alanna Angelo, RETAIL CLIENT SOLUTIONS ANALYST [address], [place], [address], [facility] 01/20/2024 10:29:45 OBGyn Episode No OBEpisode recorded.
--- OUTSIDE RECORDS SUMMARY | 2025-01-04 19:39 | XMS_ITS | Encounter Summary ---
Author Organization [facility] Address [address] [place] [address] Care Team Providers Care Primer Waterproofing Machine Operator Name Role Phone Jorge Abarca MD Primary Care Provider Encounter Details Date Type Department Care Team (Late st Contact Info) Description 09/27/2016 Orders Only [facility] John Patino - Primary Care [address] [place] [address] ProviderElsa MD [address] [place], [place] [phone] Social History Tobacco Use Types Packs/Day Years [...] on file documented as of this encounter Procedures Procedure Name Priority Date/Time Associated Diagnosis Comments COMPREHENSIVE METABOLIC PANEL Routine 09/27/2016 documented in this encounter Results * Comprehensive metabolic panel (09/27/2016) Blood specimen (specimen) Venous blood / Unknown Historical Provider LAB BLOOD ORDERABLES Rebecca l Result documented in this encounter Visit Diagnoses Not on filedocumented in this encounter Care Teams Primer Waterproofing Machine Operator Relationship Specialty Start Date End Date Jorge Abarca MD [address] [place] [address] PCP - General Family Medicine 05/14/16 documented as of this encounter
--- OUTSIDE RECORDS SUMMARY | 2025-01-04 19:39 | XMS_ITS | Clinical Summary ---
Author Organization [facility] Address [address] [facility] Attn: Epic Prelude ADT [place] [address] Care Team Providers Care Independent Consultant Name Role Phone Unavailable Primary Care Provider Unavailabl e Allergies No known active allergies Medications cyanocobalamin (VITAMIN B-12) 1,000 mcg/mL Solution Inject 1 mL (1,000 mcg) by subcutaneous injection every 30 days. 3 mL 3 09/10/2024 2:51 PM DARKROOM WORKER 4 Active metoprolol tartrate (LOPRESSOR) 50 mg tablet Take 1 Tablet (50 mg) by mouth 2 times daily for 30 days. 60 Tablet 5 12/17/2024 2:46 PM CDT 4 Active hydrOXYzine HCL (ATARAX) 25 mg tablet Take 1 Tablet (25 mg) by mouth 3 times daily for 30 days. 90 Tablet 5 12/17/2024 2:46 PM CDT 4 Active buPROPion HCL (WELLBUTRIN XL) 150 mg Extended Release 24 hour tablet Take 1 Tablet (150 mg) by mouth daily for 30 days. 30 Tablet 11 12/17/2024 2:46 PM CDT 4 Active atorvastatin (LIPITOR) 20 mg tablet Take 1 Tablet (20 mg) by mouth daily at bedtime. 30 Tablet 5 4 Active atorvastatin (LIPITOR) 20 mg tablet Take 1 Tablet (20 mg) by mouth daily at bedtime. 30 Tablet 11/19/2024 12:29 PM CDT 5 Active buPROPion HCL (WELLBUTRIN XL) 150 mg Extended Release 24 hour tablet Take 1 Tablet (150 mg) by mouth daily in the morning. 90 Tablet 2 5 Active spironolactone (ALDACTONE) 25 mg tablet Take 1 Tablet (25 mg) by mouth daily. 90 Tablet 2 5 Active celecoxib (CeleBREX) 200 mg capsule Take 1 Capsule (200 mg) by mouth daily. 90 Capsule 2 12/31/2024 2:35 PM CDT 5 Active hydrOXYzine pamoate (VISTARIL) 50 mg capsule Take 1 Capsule (50 mg) by mouth 2 times daily. 180 Capsule 2 12/31/2024 2:35 PM CDT 5 Active tiZANidine (ZANAFLEX) 4 mg Tablet Take 1 Tablet (4 mg) by mouth 3 times daily as needed. 180 Tablet 2 12/31/2024 2:35 PM CDT 5 Active atorvastatin (LIPITOR) 20 mg tablet Take 1 Tablet (20 mg) by mouth daily at bedtime. 90 Tablet 2 12/31/2024 2:35 PM CDT 5 Active atorvastatin (LIPITOR) 40 mg tablet Take 1 Tablet (40 mg) by mouth daily at bedtime. 90 Tablet 1 5 Active tiZANidine (ZANAFLEX) 4 mg Tablet Take 1 Tablet (4 mg) by mouth 3 times daily as needed for 30 days. 90 Tablet 2 11/12/2024 2:50 PM CDT 4 025 Discontin ued(Reord er) spironolactone (ALDACTONE) 25 mg tablet Take 1-2 Tablets (25-50 mg) by mouth daily. 60 Tablet 5 12/17/2024 2:46 PM CDT 4 025 Discontin ued(Reord er) Encounters Date Type Department Care Team Description 12/28/2024 External Device Data [facility] Provider, Abstract 12/02/2024 External Device Data [facility] Provider, Abstract 12/01/2024 External Device Data [facility] Provider, Abstract 11/30/2024 External Device Data [facility] Provider, Abstract from Last 3 Months Social History Tobacco Use Types Packs/Day Years Used Date Smoking Tobacco: Never Assessed Comments Unknown Sex and Gender Information Value Date Recorded Sex Assigned at Not on file Legal Sex Female 9:40 AM CDT Gender Identity Not on file Sexual Orientation Not on file Plan of Treatment Health Maintenance Due Date Last Done Comments DTAP/TDAP/TD VACCINES (1 - Tdap) 2000 HEPATITIS B VACCINES (1 of 3 - 19+ 3-dose series) 2000 HPV/Cotest (21-29) 2002 CERVICAL CANCER SCREENING 12/22/2011 HPV/Cotest (30-65) 12/22/2011 PAP SMEAR 12/22/2011 BREAST CANCER SCREENING 2021 INFLUENZA VACCINE (#1) 2024 HPV VACCINES Aged Out No longer eligi ble based on patient's age to complete this topic Insurance RX ARENAS PLANS (INTERNAL) [facility] RX [employer] RX Member Subscriber Plan / Payer (Ef fective 2024-Present) Name:Magaly Martinez R Relation to Subscriber:Self Name:Magaly Martinez Subscriber ID:Not on file Payer ID:Not on file Group ID:[id number] Type:RX Commercial Address: [place] RX [employer] RX Member Subscriber Plan / Payer (Ef fective 2024-Present) Name:Magaly Martinez Hawa Relation to Subscriber:Self Name:Magaly Martinez Hawa Subscriber ID:Not on file Payer ID:Not on file Group ID:[id number] Type:RX Commercial Address: [place]
--- OUTSIDE RECORDS SUMMARY | 2025-01-04 19:39 | XMS_ITS | Encounter Summary ---
Author Organization [facility] Address [address] [place] [address] Care Team Providers Care Nuclear Chemistry Technician Name Role Phone Jorge Abarca MD Primary Care Provider Encounter Details Date Type Department Care Team (Late st Contact Info) Description 08/12/2017 Orders Only [facility] [place] - Primary Care [address] [place] [address] Jorge Abarca MD [address] [place] [address] Social History Tobacco Use Types Packs/Day Years Used Date Smoking Tobacco: Never Smokeless Tobacco: Never Alcohol Use Standard Drinks/Week Comments Yes 0 (1 standard drink = 0.6 oz pur e alcohol) rarely Comments Unknown Sex and Gender Information Value Date Recorded Sex Assigned at Not on file Legal Sex Female 8:15 PM CDT Gender Identity Not on file Sexual Orientation Not on file documented as of this encounter Progress Notes * Jorge Abarca MD - 08/12/2017 1:25 PM CST Call patient with normal result NG CLOSER documented in this encounter Plan of Treatment Not on file documented as of this encounter Procedures Procedure Name Priority Date/Time Associated Diagnosis Comments LAB DRAW Routine 08/12/2017 documented in this encounter Results * LAB DRAW (08/12/2017) us Jorge Abarca MD PROCEDURE/MINOR SURGIC AL ORDERABLES Final Result documented in this encounter Visit Diagnoses Not on filedocumented in this encounter Care Teams Nuclear Chemistry Technician Relationship Specialty Start Date End Date Jorge Abarca MD [address] [place] [address] PCP - General Family Medicine 05/14/16 documented as of this encounter
--- OUTSIDE RECORDS SUMMARY | 2025-01-04 19:40 | XMS_ITS | Encounter Summary ---
Author Organization [facility] Address [address] [place] [address] Care Team Providers Care It Risk Advisor Name Role Phone Unavailable Primary Care Provider Unavailabl e Encounter Details Date Type Department Care Team (Late st Contact Info) Description 12/28/2024 External Device Data [facility] Provider, Abstract NO ADDRESS ON FILE Social History Tobacco Use Types Packs/Day Years [...]
--- OUTSIDE RECORDS SUMMARY | 2025-01-04 19:40 | XMS_ITS ---
Author Organization Unknown Address [address] [place] [phone] Phone Care Team Providers Care Funds Transfer Clerk Name Role Phone OLYA GIMENEZ Nursing Staff Unavailable NICHOLAS CORMIER MS-PAC Attending Unavailab le Immunization Immunization Date Status Additional Notes Code Code System Tdap 02/17/2024 Completed 115 CVX Influenza, split virus, trivalent, preservative 04/22/2018 Completed 141 CVX Influenza, split virus, trivalent, preservative 05/05/2019 Completed 141 CVX COVID-19 vaccine, vector-nr, rS-Ad26, PF, 0.5 mL 02/26/2021 Completed 212 CVX Social History Type Status Start Date End Date Code Code Syst em Smoking History Never smoker (Never Smoked) 292759067 SNOMED CT Sex Female Vital Signs Vital Sign Value Unit [place] Value [place] Unit Date/Time Recent/Initial? Code Code System Body Mass Index 38.84 kg/m2 05/08/2024 14:48 Initial 05983 -5 LOINC Systolic Blood Pressure 132 mm[Hg] 05/08/2024 14:48 Initial 8480- 6 LOINC Diastolic Blood Pressure 84 mm[Hg] 05/08/2024 14:48 Initial 8462- 4 LOINC Body Surface Area 2.31 m2 05/08/2024 14:48 Initial 3140- 1 LOINC Height 170.180 0 cm 67.00 in 05/08/2024 14:48 Initial 8302- 2 LOINC O2 Saturation 98 % 2023 14:48 Initial 59449 -5 LOINC Pulse 67.0 /min 05/08/2024 14:48 Initial 8867- 4 LOINC Respiration 18 /min 05/08/20 14:48 Initial 9279- 1 LOINC Temperature 36.3 Jacqueline 97.3 F 05/08/20 14:48 Initial 8310- 5 [facility] Weight 112.49 kg 248.00 lbs 05/08/2024 14:48 Initial 64298 -7 [facility] Medications Medication Start Date End Date Route Frequency Dose Code Code System Medication Instructions Home Meds ALPRAZolam 0.5MG Oral Tablet 06/15/2018 Unknown By mouth As needed 1 TABLET 888423 RxNorm 1 TABLET By mouth As needed CeleBREX 200MG Oral Capsule 06/15/2018 Unknown By mouth As needed 1 TABLET 556764 RxNorm 1 TABLET By mouth As needed Colace 50MG Oral Capsule, Liquid Filled 06/15/2018 05/08/20 24 By mouth Twice a day 1 TABLET 8086290 RxNorm 1 TABLET By mouth Twice a day Cyanocobalamin 1000MCG/1ML Injection Solution 06/15/2018 Unknown Intramusc ular Two times a month 1 MILLILITER 067030 RxNorm 1 MILLILITER Intramuscu lar Two times a month Lipitor 20MG Oral Tablet 06/15/2018 Unknown By mouth Once a day 1 TABLET 192327 RxNorm 1 TABLET By mouth Once a day Norvasc 5MG Oral Tablet 06/15/2018 05/08/20 24 By mouth Once a day 1 TABLET 889329 RxNorm 1 TABLET By mouth Once a day Potassium 99 MG Oral Tablet 06/15/2018 05/08/20 24 By mouth Once a day 1 TABLET RxNorm 1 TABLET By mouth Once a day Vitamin D 89201KX Oral Capsule 06/15/2018 05/08/20 24 By mouth Every Week 1 TABLET 5509224 RxNorm 1 TABLET By mouth Every Week Wellbutrin SR 150MG Oral Tablet, Extended Release, 12 HR 06/15/2018 Unknown By mouth Once a day 1 TABLET 862391 RxNorm 1 TABLET By mouth Once a day Zanaflex 4MG Oral Tablet 06/15/2018 Unknown By mouth As needed 1 TABLET 814983 RxNorm 1 TABLET By mouth As needed hydroCHLOROthia zide 12.5MG Oral Tablet 06/15/2018 05/08/20 24 By mouth Once a day 1 TABLET 696563 RxNorm 1 TABLET By mouth Once a day Augmentin 875MG-125MG Oral Tablet 08/11/2019 05/08/20 24 By mouth Twice a day 1 TABLET 831366 RxNorm TAKE 1 TABLET by mouth TWO TIMES DAILY Augmentin 875MG-125MG Oral Tablet 08/16/2019 05/08/20 24 By mouth Twice a day 1 TABLET 285699 RxNorm TAKE 1 TABLET by mouth TWO TIMES DAILY Azithromycin 250MG Oral Tablet 05/08/2024 Unknown By mouth Once a day 1 TABLET 704175 RxNorm take 2 tablets today and one for the next four days Ventolin HFA 0.09MG/1Actuati on Inhalation Suspension 05/08/2024 Unknown By mouth Every 4-6 hours 193584 RxNorm 1-2 PUFF By mouth Every 4-6 hours as needed for SoB Assessment You had the following problems:ANXIETYHTNHYPERLIPIDEMIACHRONIC LOW BACK PAINSIASTHMABRONCHITISCLOSED FRACTURE OF METATARSAL BONE OF RIGHT FOOT Hospital Discharge Instructions Should you have any questions prior to discharge, please contact a member of your healthcare team. If you have left the hospital and have any questions, please contact your primary care physician. Reason For Referral No Data Found Problems Problem Start Date Resolved Date Status Code Code System ANXIETY active 88171111 SNOMED-CT HTN active 85575430 SNOMED-CT HYPERLIPIDEMIA active 59230632 SNOME D-CT CHRONIC LOW BACK PAIN active 85968374 9 SNOMED-CT SI active SNOMED-CT ASTHMA active 578688800 SNOMED-CT BRONCHITIS active 46197720 SNOMED-CT CLOSED FRACTURE OF METATARSAL BONE OF RIGHT FOOT 05/15/2024 active 98260857305803705 SNOMED-CT Allergies and Adverse Reactions Allergy Substance Reaction Severity Start Date Concern Status Code Code System DOXYCYCLINE Active 3640 RxNorm LISINOPRIL Active 75567 RxNorm FLU VACCINE HIVES,RASH, ELEVATED HEART RATE (SNOMED-CT: null) Active 842203241 SNOMED-CT IMITREX Active 864160 RxNorm Plan of Treatment No Data Found Encounters Encounter Diagnosis Start Date Code Code Sys tem Asthma 05/08/2024 188280994 SNOMED-CT Personal Care Team Section Performer Name Performer Role Active Date Inactive Da te History and Physical Notes [facility] 05/08/2024 14:54 CLINIC PROVIDER NOTE All Demographics Patient Name Age Sex Visit Number Admission Date/Time Attending Physician Date of Service Room and Bed Emergency Contact TAZ MIRNA Hawa 1980 43 years Female [id number] 05/08/2024 14:33 CASA PETERSON 05/08/2024 152 05/08/2024 14:49 Previous notes and labwork reviewed today before evaluation of patient. History of Present Illness Chief Complaint: Chief Complaint: COUGH Pt is presenting to clinic with cough and congestion for 9 dyas. She has a history asthma. She denies any fever. She has been using her inhaler and taking otc cough meds and tylenol. She denies any sob. She denies any vomiting or diarrhea. All Problems Problem ICD Code Onset Date Resolved Date Age Status Comment Anxiety F41.9 Active HTN I10 Active Hyperlipidemia E78.5 Active Chronic low back pain M54.5 Active si Active All Allergies (Active and Inactive) Allergen Type Reaction Severity Status DOXYCYCLINE Medication active LISINOPRIL Medication active FLU VACCINE Medication HIVES,RASH, ELEVATED HEART RATE active IMITREX Medication active No Known Food Allergies Food active Past Medical/Surgical/Family/Social History Problem List Anxiety HTN Hyperlipidemia Chronic low back pain si Surgery List: No Surgical History Available Family History List: No Family History Available Social History: Social history was reviewed. Smoking Status: Never smoker, Cessation Education: Allergy List DOXYCYCLINE, Medication LISINOPRIL, Medication FLU VACCINE, Medication IMITREX, Medication No Known Food Allergies, Food Home Meds: Dose and Freq Medication Dosage Frequency ALPRAZolam 0.5MG Oral Tablet 1 TABLET As needed CeleBREX 200MG Oral Capsule 1 TABLET As needed Cyanocobalamin 1000MCG/1ML Injection Solution 1 MILLILITER Two times a month Lipitor 20MG Oral Tablet 1 TABLET Once a day Wellbutrin SR 150MG Oral Tablet, Extended Release, 12 HR 1 TABLET Once a day Zanaflex 4MG Oral Tablet 1 TABLET As needed Metoprolol Succinate 50MG Oral Tablet, Extended Release 1 TABLET Once a day Spironolactone 25MG Oral Tablet 1 TABLET Once a day Albuterol Sulfate HFA 0.09MG/1Actuation Inhalation Suspension 1 TABLET Once a day Immunization Last Administered Table Immunization Administered Date Administration Site Route Dosage Influenza, split virus, trivalent, preservative 05/05/2019 999 COVID-19 vaccine, vector-nr, rS-Ad26, PF, 0.5 mL 02/26/2021 0.5 Tdap 02/17/2024 0.5 Review of Systems: HEENT-Denies headaches, earaches, hearing loss or ear drainage. Denies runny nose, sinus drainage or sore throat. Lungs-Denies cough, wheezing or sob. Denies chest pain or labored breathing. Heart-Denies chest pain, heart palpitations or sob. Denies any edema or orthopnea Abdomen-Denies any abdominal pain, diarrhea, vomiting or hematochezia. Denies constipation. Ortho-Denies joint pain, muscle pain or joint edema. Denies decreased range of motion. Neuro-Denies any numbness or weakness. Denies any headaches or seizures. Denies any mental status changes or dementia. Genioturinary-Denies any dysuria, hematuria or urinary frequency. Skin-denies any rashes or skin lesion Physical Exam Vital Signs: This Visit Date/Time BP (mm/Hg) BP Position/Site MAP (mm/Hg) Heart Rate Pulse Site Resp Temp (C) Temp (F) SPO2% O2 L/min FiO2 EtCO2 (mm/Hg) O2 Device Blood Sugar Pain Score Height (cm) Height (in) Weight (kg) Weight (lbs/ozs) Scale BMI BSA Head Cir (cm) 05/08/2024 14:48 132/84 Sitting/Right Arm 100 67 Pulse Ox 18 36.3 Tympanic 97.3 Tympanic 98 % Room Air 21% 170.2 cm 67 in 112.49 kg 248.0 Floor Scale 38.84 2.31 General: Well appearing and well nourished. In no apparent distress. Skin: No rashes. No jaundice. [place] and warm with good turgor. Good color. No erythema or nodules noted. No petechia, bulla or ecchymosis. Head: Normocephalic, atraumatic, with no visible or palpable masses, depressions, or scarring. Eyes: Pupils are equal, round and reactive to light. Extraocular muscles are intact. Schlerae are white without injection or icterus. Fundi are without papilledema, hemorrhages or exudates, with normal vessels. Ears: The ear canals are patent without edema, exudate or drainage. Tympanic membranes are intact with a normal cone of light. No bulging or erythema to indicate infection is present. Hearing is grossly intact. Nose: No external lesions. Nasal mucosa pink and non-inflamed. Septum and turbinates appear normal. Nares patent bilaterally. Mouth/Throat: No swelling or abnormality to the lip or teeth. Oral mucosa is pink and moist. No swelling to the palate or pharynx. Uvula is midline. The pharynx is without exudate or erythema. No edema is seen of the tonsils. The airway is completely patent. The voice is normal. No stridor is heard. Neck: Supple, without lesions, bruits, or adenopathy. No JVD is seen. Thyroid is non-enlarged and non-tender. Trachea is midline. Chest/Lungs: Coarse breath sounds No rales, rhonchi or wheezes are appreciated. Good air movement is auscultated in all 4 lung camacho. There is no tenderness or palpation of the chest. Heart: Regular rate and rhythm. No murmurs, rubs or gallops. No S3, S4 or rub is ausculated. Abdomen: Soft, non-tender and non-distended. Normal bowel sounds. No hepatosplenomegaly or hernias or masses noted. No guarding, rigidity or rebound tenderness. Abdominal aorta is not palpable. Problems Addressed: Problem ICD Code Status Onset Date Addressed Date Addressed By Comment Asthma J45.909 Active 05/08/2024 Bronchitis J40 Active 05/08/2024 Assessment & Plan: 1) Bronchitis-Kenalog 60mg IM, Zpak TAd, Ventolin HFA refilled today Encouraged fluids and rest. Follow up if symptoms persist or become worse Pt verbalized agreement with treatment plan and will follow up at appropriate time. Patient advised to call our office with any concerns or side effects from new medications prescribed. Patient encouraged to exercise and eat a healthy diet. Follow up as needed
--- OUTSIDE RECORDS SUMMARY | 2025-01-04 19:40 | XMS_ITS | Encounter Summary ---
Author Organization [facility] Address [address] [place] [address] Care Team Providers Care Docking Pilot Name Role Phone Jorge Abarca MD Primary Care Provider Encounter Details Date Type Department Care Team (Late st Contact Info) Description 10/27/2013 Orders Only [facility] Radiology [address] [place] [address] System, Provider Not In, MD [address] [facility] [place] [address] Social History Tobacco Use Types Packs/Day Years [...] Procedure Name Priority Date/Time Associated Diagnosis Comments OUTSIDE IMAGES 10/27/2013 8:56 AM CDT documented in this encounter Results * Outside Images (10/27/2013 8:56 AM CDT) Anatomical Region Laterality Modality N/A Radiographic Jeanette ging 10/27/2013 8:56 AM CDT Narrative 10/27/2013 8:56 AM CDT Historic images from [facility] exist and can be viewed by using the hyperlink to access [employer] pacs: US GALLBLADDER Procedure Note System, Provider Not In - 08/09/2020 Historic images from [facility] exist and can be viewed byusing the hyperlink to access [employer] pacs: US GALLBLADDER us Provider Not In System MD [facility] Final Result documented in this encounter Visit Diagnoses Not on filedocumented in this encounter Care Teams Docking Pilot Relationship Specialty Start Date End Date Jorge Abarca MD [address] [place] [address] PCP - General Family Medicine 05/14/16 documented as of this encounter
[2025-01-04 19:43] VITALS: BP 167/98; PULSE 69; RESP 17; TEMP 36.7; O2SAT 98; BMI 43.9
[2025-01-04] MEDS: sodium chloride 0.9% 1,000 ML 999 ML IV (20:28)
[2025-01-04] MEDS: ondansetron 2 mg/ML SDV 2 mL 4 MG IVP (20:28)
[2025-01-04 20:45] LABS: Bilirubin Urine Negative (Negative); Blood Urine Negative (Negative); Glucose Urine UA Negative (Normal); Ketones Urine Negative (Negative); Leukocyte Esterase Urine Negative (Negative); Nitrate Urine Negative (Negative); Protein Urine Trace (Negative); Specific Gravity, Urine 1.022 (1.005-1.030); Urine Appearance Clear (CLEAR); Urine Color Yellow (Yellow); pH Urine 6.5 (5-7)
[2025-01-04 20:50] LABS: Add Urine Microscopic? YES; Bacteria Urine None Seen /hpf; Hyaline Casts Urine 0-4 /lpf; RBC Urine 0-2 /hpf (0-2); Squamous Epithelial Cell Urine 0-5 /hpf (0-5); WBC Urine 0-5 /hpf (0-5)
[2025-01-04] MEDS: ketorolac 30 mg/mL INJ 15 MG IVP (21:05)
[2025-01-04] MEDS: acetaminophen 1,000 MG/100 ML PIGGYBACK 400 MG IV (21:06)
[2025-01-04 21:13] LABS: Basophils # 0.1 10^3/uL (0.0-0.1); Basophils % 0.5 %; Eosinophils # 0.2 10^3/uL (0.0-0.8); Eosinophils % 1.8 %; Hematocrit 40.9 % (36-47); Lymphocytes # 2.2 10^3/uL (0.8-4.8); Lymphocytes % 16.5 %; Mean Corpuscular HGB Conc 32.5 g/dL (30-55); Mean Corpuscular Hemoglobin 28.4 pg (27-33); Mean Corpuscular Volume 87.2 fl (85-98); Mean Platelet Volume 9.9 fL (7.4-10.4); Monocytes % 7.5 %; Neutrophils % 73.2 %; Nucleated Red Blood Cells % 0 %; Platelet Count 291 10^3/cmm (157-399); Red Blood Count 4.69 10^6/uL (3.85-5.65); Red Cell Distribution Width 12.7 % (12.1-15.1); White Blood Count 13.24 10^3/uL (3.29-11.43)
[2025-01-04 21:16] VITALS: BP 185/88; PULSE 73; RESP 17; O2SAT 100
[2025-01-04 21:24] LABS: Alanine Aminotransferase 28 U/L (0-33); Albumin Level 3.9 g/dL (3.5-5.2); Alkaline Phosphatase 56 U/L (35-105); Anion Gap 12.1 (5-19); Aspartate Amino Transferase 13 U/L (0-32); Blood Urea Nitrogen 16 mg/dL (6-20); Carbon Dioxide 30 mmol/L (22-29); Chloride 101 mmol/L (98-107); Creatinine Clr Calc Pharmacy 70.2398; Globulin 2.8 g/dL (1.3-4.6); Glucose 86 mg/dL (65-115); Lipase 42 U/L (13-60); Osmolality Calculated 288 mOsm/kg (285-295); Potassium 4.1 mmol/L (3.5-5.1); Sodium 139 mmol/L (136-145); Total Bilirubin 1.3 mg/dL (0.15-1.2); Total Protein 6.7 g/dL (6.6-8.7)
[2025-01-04 22:19] VITALS: BP 161/86; PULSE 78; RESP 15; O2SAT 100
--- NOTE | 2025-01-04 22:22 | W.ED.NAVMDI ---
HPI - Nausea/Vomiting/Diarrhea General: Chief complaint: Nausea/Vomiting/Diarrhea Stated complaint: n/v Time Seen by Provider: 01/04/25 19:35 History of Present Illness: Patient presents after being contacted by her provider regarding an elevated white blood cell count (14.5) found on routine blood work. She reports feeling tired and exhausted, which she initially attributed to a recent course of prednisone for a nerve strain. Last night, she began feeling unwell, with loss of appetite after 6 PM and multiple episodes of vomiting starting at 6:30 AM today. She has not eaten for 24 hours and has difficulty keeping fluids down, though she has been able to sip Sprite. She denies diarrhea, abdominal pain, chest pain, lightheadedness, cough, sore throat, fever, and neck pain. No urinary symptoms or dark urine. She reports persistent nausea and headache, with the headache not being unusual for her. She has a history of headaches but states this episode is not different from prior ones. She recently completed a prednisone burst (40 mg daily, last dose Friday) and was also taking gabapentin until yesterday. She took Zofran this morning (two doses), which did not fully relieve her symptoms, and has not vomited since noon. She tried eating fries and drinking Sprite without vomiting but could not tolerate more. She denies any recent alcohol use or hangover. She has a history of C-sections and hysterectomy with tubal ligation. Related Data Home Medications ?Medication ?Instructions ?Recorded ?Confirmed alprazolam 0.5 mg tablet (Xanax) 0.5 mg PO DAILY PRN 05/25/24 12/28/24 atorvastatin 20 mg tablet (Lipitor) 20 mg PO DAILY 05/25/24 12/28/24 bupropion HCl 150 mg tablet,12 hr 150 mg PO DAILY 05/25/24 12/28/24 sustained-release (Wellbutrin SR) ibuprofen 200 mg tablet (IBU-200) 200 mg PO Q6H PRN 05/25/24 12/28/24 metoprolol succinate 50 mg 50 mg PO DAILY 05/25/24 12/28/24 tablet,extended release 24 hr spironolactone 25 mg tablet 25 mg PO DAILY 05/25/24 12/28/24 tizanidine 4 mg capsule (Zanaflex) 4 mg PO BID PRN 05/25/24 12/28/24 vitamin [id number] B1 1,000 ml IM 05/25/24 12/28/24 mcg-100 mg/mL injection solution Previous Rx's ?Medication ?Instructions ?Recorded prednisone 20 mg tablet 40 mg (2 x 20 mg) PO DAILY 5 days 12/28/24 #10 tabs tennis elbow strap #1 ea 12/28/24 Allergies Allergy/AdvReac Type Severity Reaction Status Date / Time doxycycline Allergy Unknown Verified 12/28/24 11:08 lisinopril Allergy Unknown Verified 12/28/24 11:08 sumatriptan (From Imitrex) Allergy Unknown Verified 12/28/24 11:08 FLU VACCINE Allergy Unknown Uncoded 12/28/24 11:08 PFS ED PFSH: Social History Smoking and tobacco/nicotine status: never used tobacco/nicotine Physical Exam Const: COMMON NORMALS: no acute distress, patient oriented x3 and alert HENMT: COMMON NORMALS: normocephalic and atraumatic HEAD & SCALP: normocephalic and atraumatic Eye: COMMON NORMALS: Equal, round and reactive pupils present, EOMs intact bilaterally and no scleral icterus PUPIL: Yes Equal, round and reactive pupils present Resp: COMMON NORMALS: normal respiratory effort and No retractions Cardio: COMMON NORMALS: regular rate, regular rhythm and No murmurs present (Cardio) RATE: regular rate RHYTHM: regular rhythm GI: COMMON NORMALS: Normal to inspection, nondistended, normoactive bowel sounds present, Soft to palpation and non-tender PALPATION: Yes Soft to palpation Neuro: COMMON NORMALS: patient oriented x3 SENSORIUM/ORIENTATION: Yes alert Skin: COMMON NORMALS: no rashes or lesions noted GENERAL SKIN EXAM: no rashes or lesions noted Course Vital Signs: Vital signs: Vital Signs Temperature 98.1 F 01/04/25 19:43 Pulse Rate 78 01/04/25 22:19 Respiratory Rate 15 01/04/25 22:19 Blood Pressure 161/86 01/04/25 22:19 Pulse Oximetry 100 01/04/25 22:19 Oxygen Delivery Me thod Room Air 01/04/25 19:43 MDM - Nausea/Vomiting/Diarrhea Medical Decision Making Patient presents with persistent nausea and headache following a recent course of prednisone for nerve strain, with onset of symptoms after being notified of an elevated WBC. She has had multiple episodes of vomiting, poor oral intake, and ongoing nausea, but denies fever, abdominal pain, chest pain, or other concerning symptoms. She has a history of headaches, and this episode is not different from prior ones. Labs are reassuring with only very minimal increase in white blood cell count and monocytes. This could be due to recent prednisone use, but also could be from a viral process causing nausea and vomiting. She has had no diarrhea. Creatinine is 1.2 with no prior studies on file for comparison. I suspect this may constitute mild RISA. She feels much better after receiving IV fluids, Ofirmev, and Toradol. I do not suspect intracranial bleed, meningitis, or any other emergent process warranting further workup at this time. She is now able to tolerate drinking Sprite with minimal nausea. She has plenty of Zofran already prescribed. She will be discharged to continue supportive care with Zofran. She shows good understanding and agrees to the plan Lab Data 01/04/25 19:48 01/04/25 21:00 Laboratory Results WBC 13.24 10^3/uL (3.29-11.43) H 01/04/25 19:48 RBC 4.69 10^6/uL (3.85-5.65) 01/04/25 19:48 Hgb 13.30 g/dL (11.27-16.99) 01/04/25 19:48 Hct 40.9 % (36-47) 01/04/25 19:48 MCV 87.2 fl (85-98) 01/04/25 19:48 MCH 28.4 pg (27-33) 01/04/25 19:48 MCHC 32.5 g/dL (30-55) 01/04/25 19:48 RDW 12.7 % (12.1-15.1) 01/04/25 19:48 Plt Count 291 10^3/cmm (157-399) 01/04/25 19:48 MPV 9.9 fL (7.4-10.4) 01/04/25 19:48 Neut % (Auto) 73.2 % 01/04/25 19:48 Lymph % (Auto) 16.5 % 01/04/25 19:48 [place] % (Auto) 7.5 % 01/04/25 19:48 Eos % (Auto) 1.8 % 01/04/25 19:48 Baso % (Auto) 0.5 % 01/04/25 19:48 Neut # (Auto) 9.70 10^3/uL (1.8-7.7) H 01/04/25 19:48 Lymph # (Auto) 2.2 10^3/uL (0.8-4.8) 01/04/25 19:48 [place] # (Auto) 1.0 10^3/uL (0.2-0.9) H 01/04/25 19:48 Eos # (Auto) 0.2 10^3/uL (0.0-0.8) 01/04/25 19:48 Baso # (Auto) 0.1 10^3/uL (0.0-0.1) 01/04/25 19:48 Nucleated RBC % (auto) 0 % 01/04/25 19:48 Nucleated RBCs # 0.0 /100WBC 01/04/25 19:48 Sodium 139 mmol/L (136-145) 01/04/25 21:00 Potassium 4.1 mmol/L (3.5-5.1) 01/04/25 21:00 Chloride 101 mmol/L (98-107) 01/04/25 21:00 Carbon Dioxide 30 mmol/L (22-29) H 01/04/25 21:00 Anion Gap 12.1 (5-19) 01/04/25 21:00 BUN 16 mg/dL (6-20) 01/04/25 21:00 Creatinine 1.2 mg/dL (0.5-0.9) H 01/04/25 21:00 GFR Calculation 49.0 mL/min (90-130) L 01/04/25 21:00 Glucose 86 mg/dL (65-115) 01/04/25 21:00 Calculated Osmolality 288 mOsm/kg (285-295) 01/04/25 21:00 Calcium 9.0 mg/dL (8.5-10.5) 01/04/25 21:00 Total Bilirubin 1.3 mg/dL (0.15-1.2) H 01/04/25 21:00 AST 13 U/L (0-32) 01/04/25 21:00 ALT 28 U/L (0-33) 01/04/25 21:00 Alkaline Phosphatase 56 U/L (35-105) 01/04/25 21:00 Total Protein 6.7 g/dL (6.6-8.7) 01/04/25 21:00 Albumin 3.9 g/dL (3.5-5.2) 01/04/25 21:00 Globulin 2.8 g/dL (1.3-4.6) 01/04/25 21:00 Lipase 42 U/L (13-60) 01/04/25 21:00 Urine Color Yellow (Yellow) 01/04/25 20:30 Urine Appearance Clear (CLEAR) 01/04/25 20:30 Urine pH 6.5 (5-7) 01/04/25 20:30 Ur Specific [place] 1.022 (1.005-1.030) 01/04/25 20:30 Urine Protein Trace (Negative) A 01/04/25 20:30 Urine Glucose (UA) Negative (Normal) 01/04/25 20:30 Urine Ketones Negative (Negative) 01/04/25 20:30 Urine Blood Negative (Negative) 01/04/25 20:30 Urine Nitrate Negative (Negative) 01/04/25 20:30 Urine Bilirubin Negative (Negative) 01/04/25 20:30 Urine Urobilinogen 1.0 mg/dL (Negative) 01/04/25 20:30 Ur Leukocyte Esterase Negative (Negative) 01/04/25 20:30 Urine RBC 0-2 /hpf (0-2) 01/04/25 20:30 Urine WBC 0-5 /hpf (0-5) 01/04/25 20:30 Ur Squamous Epith Cells 0-5 /hpf (0-5) 01/04/25 20:30 Amorphous Sediment Not Reportable 01/04/25 20:30 Urine Bacteria None seen /hpf (NONE) 01/04/25 20:30 Hyaline Casts 0-4 /lpf H 01/04/25 20:30 No radiology studies performed this visit Discharge Plan Discharge Patient Disposition: Home Clinical Impression: Headache, Nausea & vomiting, Acute dehydration Condition: Stable Prescriptions: No Action prednisone 20 mg tablet 40 mg PO DAILY 5 Days Qty: 10 0RF (DME) tennis elbow strap See Rx Instructions .Route .MEDSUPPLY Qty: 1 0RF Rx Instructions: As directed metoprolol succinate 50 mg tablet extended release 24 hr 50 mg PO DAILY spironolactone 25 mg tablet 25 mg PO DAILY atorvastatin [Lipitor] 20 mg tablet 20 mg PO DAILY bupropion HCl [Wellbutrin SR] 150 mg tablet sustained-release 12 hr 150 mg PO DAILY vitamin [id number] B1 1,000-100 mg/mL solution IM alprazolam [Xanax] 0.5 mg tablet 0.5 mg PO DAILY PRN tizanidine [Zanaflex] 4 mg capsule 4 mg PO BID PRN ibuprofen [IBU-200] 200 mg tablet 200 mg PO Q6H PRN Discharge Orders: Discharge ED (Routine); Ordered 01/04/25 Ordered By: George Stein Discharge Diet: Advance as tolerated Discharge Activity: Increase activity as tolerated Patient Instructions: Dehydration - Adult, Acute Nausea and Vomiting (ED), Patient Portal & Elizabeth Instructions Stand Alone Forms: Work/School Release Print Language: Syriac Coding Level of Care Code ED Certified Financial Planner for Juaquin Curtis
== END 2025-01-04 22:22 | disposition home or self-care (01) ==
PROVIDERS: Emergency Medicine; Emergency Provider Student in an Organized Health Care Education/Training Program
DX: R51.9 Headache, unspecified (principal); R11.2 Nausea with vomiting, unspecified; E86.0 Dehydration
CPT/HCPCS: 36415; 80053; 81001; 83690; 85025; 96374; 96375; 99284; J0131; J1885; J2405; J7030

== ENCOUNTER 2025-05-09 16:04 | Emergency (ER) | payer OTHER, SELFPAY ==
--- OUTSIDE RECORDS SUMMARY | 2025-05-08 09:10 | XMS_ITS | Continuity of Care Document ---
Author Organization [facility] Address [address] [place] [id number] Support Name Relationship Address Phone CHRISTIANO MCGHEE spouse Unknown Unavailable Encounter [facility] [id number] Date(s): 05/08/25 - 05/08/[address] [address]- Encounter Diagnosis Left genital labial abscess(Discharge Diagnosis) - 05/08/25 Abscess of left groin(Discharge Diagnosis) - 05/08/25 Discharge Disposition: Home or Self Care Attending Physician: AUSTIN BUTLER CINDER BLOCK MASON Encounter Type: Emergency/Outpatients Allergies, Adverse Reactions, Alerts Substance Criticality Severity Reaction Reaction Severity Status doxycycline Unable to assess criticality Unknown Active lisinopril Unable to assess criticality Unknown Active flu vaccines Unable to assess criticality Unknown Active Imitrex Unable to assess criticality Unknown Active Medications Bactrim DS 800 mg-160 mg oral tablet 1 tab(s), Oral, BID, X 10 day(s), # 20 tab(s), 0 Refill(s), Pharmacy: [facility], 157.48, cm, 05/08/25 8:26:00 CDT, Patient Height, 112.49, kg, 05/08/25 8:26:00 CDT, Patient Weight (kg) Start Date: 05/08/25 Stop Date: 05/18/25 Status: Ordered Quantity: 20.0 Unit: tab(s) Repeat number: 1 Mental Status 05/08/25 Orientation Assessment Oriented x 4 Affect/Behavior Appropriate, Calm, Cooperative Hallucinations Present None Vital Signs Most recent to oldest [Reference Range]: 1 Patient Height 157.48 cm (05/08/25 8:26 AM) Patient Weight (kg) 112.49 kg (05/08/25 8:26 AM) [place] Body Weight Calculated 50.1 kg (05/08/25 8:26 AM) Blood Pressure [95-120/59-81 mmHg] 162/9 7mmHg *HI* (05/08/25 8:26 AM) Mean Arterial Pressure, Cuff 119 mmHg *>HHI* (05/08/25 8:26 AM) SpO2 95 % (05/08/25 9:00 AM) Peripheral Pulse Rate [60-100 bpm] 67 bp m (05/08/25 9:00 AM) Respiratory Rate [10-21 br/min] 17 br/mi n (05/08/25 8:26 AM) Social History Social History Type Response Sex Female Sex Representation Female (finding) Hospital Discharge Instructions Patient Education 05/08/2025 09:00:46 Skin Abscess Skin Abscess A skin abscess is an infected area on or under your skin. It contains pus and other material. An abscess may also be called a furuncle, carbuncle, or boil. It is often the result of an infection caused by bacteria. An abscess can occur in or on almost any part of your body. Sometimes, an abscess may break open (rupture) on its own. In most cases, it will keep getting worse unless it is treated. An abscess can cause pain and make you feel ill. An untreated abscess can cause infection to spread to other parts of your body or your bloodstream. The abscess may need to be drained. You may also need to take antibiotics. What are the causes? An abscess occurs when germs, like bacteria, pass through your skin and cause an infection. This may be caused by: ??? A scrape or cut on your skin. ??? A puncture wound through your skin, such as a needle injection or insect bite. ??? Blocked oil or sweat glands. ??? Blocked and infected hair follicles. ??? A fluid-filled sac that forms beneath your skin (sebaceous cyst) and becomes infected. What increases the risk? You may be more likely to develop an abscess if: ??? You have problems with blood circulation, or you have a weak body defense system (immune system). ??? You have diabetes. ??? You have dry and irritated skin. ??? You get injections often or use IV drugs. ??? You have a foreign body in a wound, such as a splinter. ??? You smoke or use tobacco products. What are the signs or symptoms? Symptoms of this condition include: ??? A painful, firm bump under the skin. ??? A bump with pus at the top. This may break through the skin and drain. Other symptoms include: ??? Redness and swelling around the abscess. ??? Warmth or tenderness. ??? Swelling of the lymph nodes (glands) near the abscess. ??? A sore on the skin. How is this diagnosed? This condition may be diagnosed based on a physical exam and your medical history. You may also have tests done, such as: ??? A test of a sample of pus. This may be done to find what is causing the infection. ??? Blood tests. ??? Imaging tests, such as an ultrasound, CT scan, or MRI. How is this treated? A small abscess that drains on its own may not need to be treated. Treatment for larger abscesses may include: ??? Moist heat or a heat pack applied to the area a few times a day. ??? Incision and drainage. This is a procedure to drain the abscess. ??? Antibiotics. For a severe abscess, you may first get antibiotics through an IV and then change to antibiotics by mouth. Follow these instructions at home: Medicines ??? Take ukrw-mhs-ljolcmh and prescription medicines only as told by your provider. ??? If you were prescribed antibiotics, take them as told by your provider. Do not stop using the antibiotic even if you start to feel better. Abscess care ??? If you have an abscess that has not drained, apply heat to the affected area. Use the heat source that your provider recommends, such as a moist heat pack or a heating pad. ??? Place a towel between your skin and the heat source. ??? Leave the heat on for 20???30 minutes at a time. ??? If your skin turns bright red, remove the heat right away to prevent denny. The risk of denny is higher if you cannot feel pain, heat, or cold. ??? Follow instructions from your provider about how to take care of your abscess. Make sure you: ??? Cover the abscess with a bandage (dressing). ??? Wash your hands with soap and water for at least 20 seconds before and after you change the dressing or gauze. If soap and water are not available, use hand rn iv therapy. ??? Change your dressing or gauze as told by your provider. ??? Check your abscess every day for signs of an infection that is getting worse. Check for: ??? More redness, swelling, pain, or tenderness. ??? More fluid or blood. ??? Warmth. ??? More pus or a worse smell. General instructions ??? To avoid spreading the infection: ??? Do not share personal care items, towels, or hot tubs with others. ??? Avoid making skin contact with other people. ??? Be careful when getting rid of used dressings, wound packing, or any drainage from the abscess. ??? Do not use any products that contain nicotine or tobacco. These products include cigarettes, chewing tobacco, and vaping devices, such as e-cigarettes. If you need help quitting, ask your provider. ??? Do not use any creams, ointments, or liquids unless you have been told to by your provider. Contact a health care provider if: ??? You see redness that spreads quickly or red streaks on your skin spreading away from the abscess. ??? You have any signs of worse infection at the abscess. ??? You vomit every time you eat or drink. ??? You have a fever, chills, or muscle aches. ??? The cyst or abscess returns. Get help right away if: ??? You have severe pain. ??? You make less pee (urine) than normal. This information is not intended to replace advice given to you by your health care provider. Make sure you discuss any questions you have with your health care provider. Document Revised: 02/12/2023 Document Reviewed: 02/12/2023 [employer] Patient Education ?? 2022 [employer]. 05/08/2025 09:00:46 Incision and Drainage Incision and Drainage Incision and drainage is a surgical procedure to open and drain a fluid-filled sac. The sac may be filled with pus, mucus, or blood. Examples of fluid-filled sacs that may need surgical drainage include cysts, skin infections (abscesses), and red lumps that develop from a ruptured cyst or a small abscess (boils). You may need this procedure if the affected area is large, painful, infected, or not healing well. Tell a health care provider about: ??? Any allergies you have. ??? All medicines you are taking, including vitamins, herbs, eye drops, creams, and uloh-grk-eevznwi medicines. ??? Any problems you or family members have had with anesthetic medicines. ??? Any blood disorders you have or have had. ??? Any surgeries you have had. ??? Any medical conditions you have or have had. ??? Whether you are or may be . What are the risks? Generally, this is a safe procedure. However, problems may occur, including: ??? Infection. ??? Bleeding. ??? Allergic reactions to medicines. ??? Scarring. ??? The cyst or abscess returns. ??? Damage to nerves or vessels. What happens before the procedure? Medicine Ask your health care provider about: ??? Changing or stopping your regular medicines. This is especially important if you are taking diabetes medicines or blood thinners. ??? Taking medicines such as aspirin and ibuprofen. These medicines can thin your blood. Do not take these medicines unless your health care provider tells you to take them. ??? Taking zsnd-ywv-gdqesoi medicines, vitamins, herbs, and supplements. Tests You may have an exam or testing. These may include: ??? Ultrasound or other imaging tests to see how large or deep the fluid-filled sac is. ??? Blood tests to check for infection. General instructions ??? Follow instructions from your health care provider about eating or drinking restrictions. ??? Plan to have someone take you home from the hospital or clinic. ??? Ask your health care provider whether a responsible adult should care for you for at least 24 hours after you leave the hospital or clinic. This is important. ??? You may get a tetanus shot. ??? Ask your health care provider: ??? How your surgery site will be marked or identified. ??? What steps will be taken to help prevent infection. These may include: ??? Removing hair at the surgery site. ??? Washing skin with a germ-killing soap. ??? Receiving antibiotic medicine. What happens during the procedure? An IV may be inserted into one of your veins. ??? You will be given one or more of the following: ??? A medicine to help you relax (sedative). ??? A medicine to numb the area (local anesthetic). ??? A medicine to make you fall asleep (general anesthetic). ??? An incision will be made in the top of the fluid-filled sac. ??? Pus, blood, and mucus will be squeezed out, and a syringe or tube (drain) may be used to empty more fluid from the sac. ??? Your health care provider will do one of the following. He or she may: ??? Leave the drain in place for several weeks to drain more fluid. ??? Stitch open the edges of the incision to make a long-term opening for drainage (marsupialization). ??? The inside of the sac may be washed out (irrigated) with a sterile solution and packed with gauze before it is covered with a bandage (dressing). ??? Your health care provider may do a culture test of the drainage fluid. The procedure may vary among health care providers and hospitals. What happens after the procedure? Your blood pressure, heart rate, breathing rate, and blood oxygen level will be monitored oftenuntil you leave the hospital or clinic. ??? Do not drive for 24 hours if you were given a sedative during your procedure. Summary ??? Incision and drainage is a surgical procedure to open and drain a fluid- filled sac. The sac maybe filled with pus, mucus, or blood. ??? Before the procedure, you may be given antibiotic medicine to treat or help prevent infection. ??? During the procedure, an incision will be made in the top of the fluid- filled sac. Pus, blood, and mucus is squeezed out, and a syringe or tube (drain) may be used to empty more fluid from the sac. ??? The inside of the sac may be washed out (irrigated) with a sterile solution and packed with gauze before it is covered with a bandage (dressing). This information is not intended to replace advice given to you by your health care provider. Make sure you discuss any questions you have with your health care provider. Document Revised: 10/03/2022 Document Reviewed: 04/11/2022 [employer] Patient Education ?? 2022 [employer]. Follow Up Care 05/08/2025 08:25:27 With:Return to ED if symptoms worsen Address:Unknown When:1 to 2 days Patient Care team information Care Team Related Persons Name: CHRISTIANO MCGHEE Insurance Providers Guarantor name: MIRNA Shaikh TAZ [employer] [facility] Information #: 1 Payer: [facility] Member Number: [id number] Policy Number: NA Group Number: [id number] Payer Identifier: NA Health Plan Information #: 2 Payer: [facility] Member Number: [id number] Policy Number: NA Group Number: NA Payer Identifier: NA
[2025-05-09 16:08] VITALS: BP 172/102; PULSE 74; RESP 16; TEMP 36.7; O2SAT 98
--- OUTSIDE RECORDS SUMMARY | 2025-05-09 16:12 | XMS_ITS | Clinical Summary ---
Author Organization [facility] Address [address] Attn: Epic Prelude ADT [place]ONY [place]END[place]ALL [id number] Care Team Providers Care Electrician Manager Name Role Phone Unavailable Primary Care Provider Unavailabl e Allergies No known active allergies Medications cyanocobalamin (VITAMIN B-12) 1,000 mcg/mL Solution Inject 1 mL (1,000 mcg) by subcutaneous injection every 30 days. 3 mL 3 09/10/2024 2:51 PM [employer] FIN[employer]ER 4 Active hydrOXYzine HCL (ATARAX) 25 mg [...] daily in the morning. 90 Tablet 2 04/15/2025 11:59 AM CDT 5 Active spironolactone (ALDACTONE) 25 mg tablet Take 1 Tablet (25 mg) by mouth daily. 90 Tablet 2 01/28/2025 11:32 AM CDT 5 Active celecoxib (CeleBREX) 200 mg capsule Take 1 Capsule (200 mg) by mouth daily. 90 Capsule 2 12/31/2024 2:35 PM CDT 5 Active hydrOXYzine pamoate (VISTARIL) 50 mg capsule Take 1 Capsule (50 mg) by mouth 2 times daily. 180 Capsule 2 04/15/2025 11:59 AM CDT 5 Active tiZANidine (ZANAFLEX) 4 mg [...] mouth daily at bedtime. 90 Tablet 1 04/15/2025 11:59 AM CDT 5 Active metoprolol tartrate (LOPRESSOR) 50 mg tablet Take 1 Tablet (50 mg) by mouth 2 times daily. 60 Tablet 3 04/15/2025 11:59 AM CDT 5 Active Encounters Date Type Department Care Team Description 05/03/2025 External Device Data [facility] Provider, Abstract 02/15/2025 External Device Data [facility] Provider, Abstract [...] Health Maintenance Due Date Last Done Comments Pre-Diabetes and Diabetes Screening 1981 DTAP/TDAP/TD VACCINES (1 - Tdap) 2000 HEPATITIS B VACCINES (1 of 3 - 19+ 3-dose series) 12/12 HPV/Cotest (21-29) 2002 HPV VACCINES (1 - 3-dose SCDM series) 2008 CERVICAL CANCER SCREENING 12/22/2011 HPV/Cotest (30-65) 12/22/2011 PAP SMEAR 12/22/2011 BREAST CANCER SCREENING 2021 INFLUENZA VACCINE (#1) 2025 Insurance RX ARENAS PLANS (INTERNAL) [facility] [...]
--- OUTSIDE RECORDS SUMMARY | 2025-05-09 16:12 | XMS_ITS | Encounter Summary ---
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 in this encounter Plan of Treatment Not on file documented as of this encounter Procedures Procedure Name Priority Date/Time Associated Diagnosis Comments LAB DRAW Routine 08/12/2017 documented in this encounter Results * LAB DRAW (08/12/2017) us Jorge Abarca MD PROCEDURE/MINOR SURGIC AL ORDERABLES Final Result documented in this encounter Visit Diagnoses Not on filedocumented in this encounter Care Teams Clinical Application Manager Relationship Specialty Start Date End Date Jorge Abarca MD [address] [place] [address] PCP - General Family Medicine 05/14/16 documented as of this encounter
--- OUTSIDE RECORDS SUMMARY | 2025-05-09 16:12 | XMS_ITS | Encounter Summary ---
Author Organization [facility] Address [address] [place] [address] Care Team Providers Care Health Aid Name Role Phone Jorge Abarca MD Primary Care Provider Encounter Details Date Type Department Care Team (Late st Contact Info) Description 09/11/2016 Orders Only [facility] John [place] - Primary Care [address] [place] [address] Pina Diaz, RN Social History Tobacco Use [...] on filedocumented in this encounter Care Teams Health Aid Relationship Specialty Start Date End Date Jorge Abarca MD [address] [place] [address] PCP - General Family Medicine 05/14/16 documented as of this encounter
--- OUTSIDE RECORDS SUMMARY | 2025-05-09 16:12 | XMS_ITS | Encounter Summary ---
Author Organization [facility] Address [address] [place] [address] Care Team Providers Care Real Estate Specialist Name Role Phone Jorge Abarca MD Primary Care Provider Encounter Details Date Type Department Care Team (Late st Contact Info) Description 10/27/2013 Orders Only [facility] [address] [place] [address] System, Provider Not In, MD [address] [facility] [place] [address] Social History Tobacco Use Types Packs/Day Years [...] 10/27/2013 8:56 AM CDT Historic images from [facility] exist and can be viewed by using the hyperlink to access Track the Bet pacs: US GALLBLADDER Procedure Note System, Provider Not In - 08/09/2020 Historic images from [facility] exist and can be viewed byusing the hyperlink to access Track the Bet pacs: US GALLBLADDER us Provider Not In System MD [facility] Final Result documented in this encounter Visit Diagnoses Not on filedocumented in this encounter Care Teams Real Estate Specialist Relationship Specialty Start Date End Date Jorge Abarca MD [address] [place] [address] PCP - General Family Medicine 05/14/16 documented as of this encounter
--- OUTSIDE RECORDS SUMMARY | 2025-05-09 16:12 | XMS_ITS | Encounter Summary ---
Author Organization [facility] Address [address] [place] [address] Care Team Providers Care Budget Director Name Role Phone Unavailable Primary Care Provider Unavailabl e Encounter Details Date Type Department Care Team (Late st Contact Info) Description 05/03/2025 External Device Data [facility] ABSTRACTION [...]
--- OUTSIDE RECORDS SUMMARY | 2025-05-09 16:12 | XMS_ITS | Encounter Summary ---
Author Organization [facility] Address [address] [place] [address] Care Team Providers Care Telephone Lineman Name Role Phone Jorge Abarca MD Primary Care Provider Encounter Details Date Type Department Care Team (Late st Contact Info) Description 09/27/2016 Orders Only [facility] John [place] - Primary Care [address] [place] [address] ProviderElsa MD [address] [place], [place] [id number] Social History Tobacco Use Types Packs/Day Years [...] on filedocumented in this encounter Care Teams Telephone Lineman Relationship Specialty Start Date End Date Jorge Abarca MD [address] [place] [address] [address] PCP - General Family Medicine 05/14/16 documented as of this encounter
--- OUTSIDE RECORDS SUMMARY | 2025-05-09 16:12 | XMS_ITS | Clinical Summary ---
Author Organization [facility] Address [address] [place] [address] Care Team Providers Care Owner/Operator Name Role Phone Jorge Abarca MD Primary [...] CDT Respiratory Rate 20 09/04/2016 4:03 PM PHYSICAL MEDICINE PHYSICIAN Oxygen Saturation 97% 11/02/2020 8:18 AM CDT [...] of 3 - 19+ 3-dose series) 2000 HPV Vaccines (1 - 3-dose SCD M series) 2008 Pap Smear 02/12/2020 02/11/2017 Mammogram 2021 Influenza Vaccination (#1) 2025 04/22/2018 Td, Tdap Vaccines Adult 07/12/2027 [...] to complete this topic Insurance [place] [id number] [employer] Care Teams Owner/Operator Relationship Specialty Start Date End Date Jorge Abarca MD [address] [place] [address] PCP - General Family Medicine 05/14/16
--- OUTSIDE RECORDS SUMMARY | 2025-05-09 16:12 | XMS_ITS | Encounter Summary ---
Author Organization [facility] Address [address] [place] [address] Care Team Providers Care Director Physical Name Role Phone Jorge Abarca MD Primary Care Provider Encounter Details Date Type Department Care Team (Late st Contact Info) Description 09/10/2016 Orders Only [facility] John [place] - Primary Care [address] [place] [address] Melvina Carey LPN Social History Tobacco Use [...] on filedocumented in this encounter Care Teams Director Physical Relationship Specialty Start Date End Date Jorge Abarca MD [address] [place] [address] [address] PCP - General Family Medicine 05/14/16 documented as of this encounter
--- OUTSIDE RECORDS SUMMARY | 2025-05-09 16:12 | XMS_ITS | Patient Health Record ---
Author Organization [facility] Address [address] [address] [place] [address] Care Team Providers Care Couture Dressmaker Name Role Phone Jenny Mcclellan Primary Care Provider Annalisaa Lucero Dempsey Unavailable [phone] Reason For Referral No Information Problems Problem Type SNOMED Code ICD Code Onset Dates Problem Status W/U Status Risk Notes Problem Inflamed seborrheic keratosis (822933221) Inflamed seborrheic keratosis (L82.0) Active confirmed Problem Disorder of skin AND/OR subcutaneous tissue (29497361) Disorder of the skin and subcutaneous tissue, unspecified (L98.9) Active confirmed Problem History of malignant neoplasm of skin (situation) (067785014) Personal history of other malignant neoplasm of skin (Z85.828) Active confirmed Plan Of Treatment No Information Insurance Providers Payer Name Payer Address Payer Phone Subscriber Number Group Number Insured Name Patient Relationship to Insured Coverage Start Date Coverage End Date [employer] [address] [place] [phone] [id number] Juan Magaly Self - patient is the insured
[2025-05-09 16:32] VITALS: BP 165/90; O2SAT 99
--- NOTE | 2025-05-09 16:33 | W.ED.SKABFB ---
HPI - Skin/Abscess/Foreign Bdy General: Chief complaint: Wound/Laceration Stated complaint: Absess on Left Labial wall Time Seen by Provider: 05/09/25 16:27 Source: patient Mode of arrival: ambulatory Limitations: no limitations History of Present Illness: Patient is a nice 44-year-old female presents to ED today with complaint of a left labial abscess that she has noticed over the past few days. She feels like it possibly started with an infected/ingrown hair. Patient was seen [facility] yesterday and had the area incised and drained. She states abscess was not cultured nor was not packed. Patient was placed on Bactrim. She feels like the area was significantly more swollen this morning. She reports overall feeling ill. She has not had any documented fevers but has had sweats. Vital signs are stable upon arrival apart from hypertension. MD complaint: abscess/boil Onset (ago): day(s) Location: genitals Severity: moderate Pain Consistency: constant Relieving factors: none Exacerbating factors: none Context: none Associated symptoms: Reports other (sweats); Deny fever(s), nausea or vomiting Treatments prior to arrival: other (I&D performed yesterday at [facility]) Related Data Home Medications ?Medication ?Instructions ?Recorded ?Confirmed alprazolam 0.5 mg tablet (Xanax) 0.5 mg PO DAILY PRN 05/25/24 01/10/25 bupropion HCl 150 mg tablet,12 hr 150 mg PO DAILY 05/25/24 01/10/25 sustained-release (Wellbutrin SR) ibuprofen 200 mg tablet (IBU-200) 200 mg PO Q6H PRN 05/25/24 01/10/25 metoprolol succinate 50 mg 50 mg PO DAILY 05/25/24 01/10/25 tablet,extended release 24 hr spironolactone 25 mg tablet 25 mg PO DAILY 05/25/24 01/10/25 tizanidine 4 mg capsule (Zanaflex) 4 mg PO BID PRN 05/25/24 01/10/25 vitamin [id number] B1 1,000 ml IM 05/25/24 01/10/25 mcg-100 mg/mL injection solution atorvastatin 20 mg tablet (Lipitor) 40 mg PO DAILY 01/10/25 01/10/25 Previous Rx's ?Medication ?Instructions ?Recorded prednisone 20 mg tablet 40 mg (2 x 20 mg) PO DAILY 5 days 12/28/24 #10 tabs tennis elbow strap #1 ea 12/28/24 sulfamethoxazole 800 2 tab PO BID 7 days #28 tabs 05/09/25 mg-trimethoprim 160 mg tablet (Bactrim DS) tramadol 50 mg tablet 50 mg PO Q6H PRN pain #10 tabs 05/09/25 Allergies Allergy/AdvReac Type Severity Reaction Status Date / Time doxycycline Allergy Unknown Verified 05/09/25 16:12 lisinopril Allergy Unknown Verified 05/09/25 16:12 sumatriptan (From Imitrex) Allergy Unknown Verified 05/09/25 16:12 FLU VACCINE Allergy Unknown Uncoded 05/09/25 16:12 Review of Systems Const: Denies: fever(s) GI: Denies: abdominal pain, nausea or vomiting Skin/Breast: Reports: other (L labial abscess) PFSH ED PFSH: Social History Smoking and tobacco/nicotine status: never used tobacco/nicotine Physical Exam Const: COMMON NORMALS: no acute distress, no limitations and well nourished GENERAL APPEARANCE: cooperative : OTHER: cellulitis to mons region GENITAL IMAGES (FEMALE):  1. L labial abscess with large amount of induration-probably 8-10cm; small incision that was made yesterday has almost closed-underlying fluctuance here with plan to reopen and pack Procedures Abscess I/D Site: other (Left labial) Side (if applicable): left Local Anesthetic: lidocaine 2% Amount of anesthesia used (mL): 7.0 Technique: incised with #11 blade Amount of fluid expressed (mL): 3.0 Packing used?: plain Course Vital Signs: Vital signs: Vital Signs Temperature 98.0 F 05/09/25 16:08 Pulse Rate 74 05/09/25 16:08 Respiratory Rate 16 05/09/25 16:08 Blood Pressure 146/96 05/09/25 17:52 Pulse Oximetry 98 05/09/25 17:52 Oxygen Delivery Me thod Room Air 05/09/25 17:52 MDM - Skin/Abscess/Foreign Bdy Medicial Decision Making Abscess cavity was reopened, probed, and packed. She was given IV antibiotics. Vital signs are stable. Blood work showing a white count of 14.7. CRP is elevated at 64.4. I will increase her Bactrim to two tabs BID. She was given strict instructions that if this does not improve over the next 24 to 48 hours (and certainly if it acutely worsens) she needs to follow-up back here in the emergency department for reevaluation and imaging and probable admission for IV antibiotics. Patient voiced understanding. Differential Diagnosis Likely abscess of skin or subcutaneous tissue Medical Records I reviewed the patient's medical records. Lab Data I reviewed the patient's lab results. 05/09/25 16:53 05/09/25 16:53 Laboratory Results WBC 14.67 10^3/uL (3.29-11.43) H 05/09/25 16:53 RBC 4.57 10^6/uL (3.85-5.65) 05/09/25 16:53 Hgb 12.80 g/dL (11.27-16.99) 05/09/25 16:53 Hct 40.0 % (36-47) 05/09/25 16:53 MCV 87.5 fl (85-98) 05/09/25 16:53 MCH 28.0 pg (27-33) 05/09/25 16:53 MCHC 32.0 g/dL (30-55) 05/09/25 16:53 RDW 12.8 % (12.1-15.1) 05/09/25 16:53 Plt Count 279 10^3/cmm (157-399) 05/09/25 16:53 MPV 10.2 fL (7.4-10.4) 05/09/25 16:53 Neut % (Auto) 73.6 % 05/09/25 16:53 Lymph % (Auto) 15.2 % 05/09/25 16:53 [place] % (Auto) 8.9 % 05/09/25 16:53 Eos % (Auto) 1.5 % 05/09/25 16:53 Baso % (Auto) 0.4 % 05/09/25 16:53 Neut # (Auto) 10.80 10^3/uL (1.8-7.7) H 05/09/25 16:53 Lymph # (Auto) 2.2 10^3/uL (0.8-4.8) 05/09/25 16:53 [place] # (Auto) 1.3 10^3/uL (0.2-0.9) H 05/09/25 16:53 Eos # (Auto) 0.2 10^3/uL (0.0-0.8) 05/09/25 16:53 Baso # (Auto) 0.1 10^3/uL (0.0-0.1) 05/09/25 16:53 Nucleated RBC % (auto) 0 % 05/09/25 16:53 Nucleated RBCs # 0.0 /100WBC 05/09/25 16:53 Sodium 136 mmol/L (136-145) 05/09/25 16:53 Potassium 3.3 mmol/L (3.5-5.1) L 05/09/25 16:53 Chloride 100 mmol/L (98-107) 05/09/25 16:53 Carbon Dioxide 23 mmol/L (22-29) 05/09/25 16:53 Anion Gap 16.3 (5-19) 05/09/25 16:53 BUN 17 mg/dL (6-20) 05/09/25 16:53 Creatinine 1.4 mg/dL (0.5-0.9) H 05/09/25 16:53 GFR Calculation 41.0 mL/min (90-130) L 05/09/25 16:53 Glucose 98 mg/dL (65-115) 05/09/25 16:53 Calculated Osmolality 284 mOsm/kg (285-295) L 05/09/25 16:53 Calcium 9.3 mg/dL (8.5-10.5) 05/09/25 16:53 Total Bilirubin 0.7 mg/dL (0.15-1.2) 05/09/25 16:53 AST 13 U/L (0-32) 05/09/25 16:53 ALT 15 U/L (0-33) 05/09/25 16:53 Alkaline Phosphatase 74 U/L (35-105) 05/09/25 16:53 C-Reactive Protein 64.4 mg/L (0.0-4.9) H 05/09/25 16:53 Total Protein 7.4 g/dL (6.6-8.7) 05/09/25 16:53 Albumin 4.2 g/dL (3.5-5.2) 05/09/25 16:53 Globulin 3.2 g/dL (1.3-4.6) 05/09/25 16:53 No radiology studies performed this visit Discharge Plan Discharge Patient Disposition: Home Clinical Impression: Abscess of genital labia Condition: Stable Prescriptions: New sulfamethoxazole-trimethoprim [Bactrim DS] 800-160 mg tablet 2 tab PO BID 7 Days Qty: 28 0RF tramadol 50 mg tablet 50 mg PO Q6H PRN (Reason: pain) Qty: 10 0RF No Action prednisone 20 mg tablet 40 mg PO DAILY 5 Days Qty: 10 0RF (DME) tennis elbow strap See Rx Instructions .Route .MEDSUPPLY Qty: 1 0RF Rx Instructions: As directed atorvastatin [Lipitor] 20 mg tablet 40 mg PO DAILY metoprolol succinate 50 mg tablet extended release 24 hr 50 mg PO DAILY spironolactone 25 mg tablet 25 mg PO DAILY bupropion HCl [Wellbutrin SR] 150 mg tablet sustained-release 12 hr 150 mg PO DAILY vitamin [id number] B1 1,000-100 mg/mL solution IM alprazolam [Xanax] 0.5 mg tablet 0.5 mg PO DAILY PRN tizanidine [Zanaflex] 4 mg capsule 4 mg PO BID PRN ibuprofen [IBU-200] 200 mg tablet 200 mg PO Q6H PRN Discharge Orders: Discharge ED (Routine); Ordered 05/09/25 Ordered By: Juani Putnam Patient Instructions: Abscess (ED), Abscess Follow-up (ED), Abscess Incision and Drainage (DC), Patient Portal & Elizabeth Instructions Activity Restrictions/Additional Instructions: Please monitor your abscess for worsening symptoms such as worsening redness, swelling, increased drainage, red streaking, or fevers. If you have been on antibiotics for over 48 hours and continue to worsen you need to immediately return to the emergency department for re-evaluation. If your abscess was incised and drained and packing was placed, try and leave your packing in for 72 hours before removing. It is usually a good idea to follow up with primary care so abscess can be re-evaluated for the need for re-packing. Print Language: Citizen Of [place] Coding Level of Care Code ED Escort Vehicle Driver for Juaquin Curtis
[2025-05-09] MEDS: piperacillin-tazobactam 3.375 GM in sodium chloride 0.9% (plus) 50 ML IV (16:59)
[2025-05-09] MEDS: lidocaine 2% INJ 20 mL INJECTION (17:00)
[2025-05-09] MEDS: lidocaine-prilocaine cream 5 gm 2 APPLIC TOPICAL (17:00)
[2025-05-09 17:01] LABS: Hematocrit 40.0 % (36-47); Hemoglobin 12.80 g/dL (11.27-16.99); Mean Corpuscular HGB Conc 32.0 g/dL (30-55); Mean Corpuscular Hemoglobin 28.0 pg (27-33); Mean Corpuscular Volume 87.5 fl (85-98); Nucleated Red Blood Cells % 0 %; Platelet Count 279 10^3/cmm (157-399); Red Blood Count 4.57 10^6/uL (3.85-5.65); White Blood Count 14.67 10^3/uL (3.29-11.43)
--- NOTE | 2025-05-09 17:17 | PC.NURSE ---
Attempted report to [facility] at [phone]. [facility] did not answer.
[2025-05-09 17:22] LABS: Alanine Aminotransferase 15 U/L (0-33); Albumin Level 4.2 g/dL (3.5-5.2); Alkaline Phosphatase 74 U/L (35-105); Anion Gap 16.3 (5-19); Aspartate Amino Transferase 13 U/L (0-32); Blood Urea Nitrogen 17 mg/dL (6-20); Calcium 9.3 mg/dL (8.5-10.5); Carbon Dioxide 23 mmol/L (22-29); Chloride 100 mmol/L (98-107); Globulin 3.2 g/dL (1.3-4.6); Glucose 98 mg/dL (65-115); Osmolality Calculated 284 mOsm/kg (285-295); Potassium 3.3 mmol/L (3.5-5.1); Sodium 136 mmol/L (136-145); Total Protein 7.4 g/dL (6.6-8.7)
[2025-05-09 17:52] VITALS: BP 146/96; O2SAT 98
[2025-05-09 18:31] VITALS: BP 141/73; O2SAT 98
[2025-05-09 19:04] VITALS: BP 139/66; O2SAT 97
[2025-05-09 19:26] VITALS: BP 139/66; PULSE 68; RESP 16; O2SAT 99
== END 2025-05-09 19:40 | disposition home or self-care (01) ==
PROVIDERS: Emergency Provider Physician Assistant
DX: N76.4 Abscess of vulva (principal)
CPT/HCPCS: 56405; 80053; 85025; 86140; 87070; 87075; 87077; 87186; 87205; 96374; 96375; 99284; J1885; J2543; J3373; J9999